=== PATIENT | female | born 1960 | race Caucasian/White ===

== ENCOUNTER → 2016-08-29 | Outpatient (CLI) | payer BC ==
[~2016-08-29] MED LIST: ALBUAER2 INH; AMT/50 PO; BCTO EXT; BMX1 PO; DOUNEB INH; EFF/375 PO; MOME200A INH; NXM/40 PO; POTA-335 PO; PRAM0.129 PO; TRAM-10 PO; VLT500 PO
--- NOTE | 2016-08-29 13:34 | DIAGNOSTIC IMAGING REPORT ---
RIGHT WRIST MIN 3 VIEWS ROUTINE CLINICAL HISTORY: WRIST Right trauma. Pain. COMPARISON: None. DISCUSSION: Mild degenerative change throughout the carpal and radiocarpal regions. Several subchondral cysts on a degenerative basis. No acute bony abnormality. There is no evidence for soft tissue swelling. IMPRESSION: Mild degenerative change. No acute bony abnormality. Electronically signed by: Valeriano Gunter M.D. 08/29/2016 1:33 PM Dictated Date/Time: 08/29/2016 1:32 PM
--- NOTE | 2016-08-29 13:43 | DIAGNOSTIC IMAGING REPORT ---
RIGHT HAND MIN 3 VIEWS ROUTINE CLINICAL HISTORY: HAND Right trauma. Pain. COMPARISON: None. DISCUSSION: Generalized degenerative change throughout the hand and wrist. No evidence for acute fracture or dislocation. Bony alignment is anatomic. There is no evidence for soft tissue swelling. IMPRESSION: Generalized degenerative change. No acute bony abnormality. Electronically signed by: Valeriano Gunter M.D. 08/29/2016 1:42 PM Dictated Date/Time: 08/29/2016 1:41 PM
--- NOTE | 2016-08-29 14:15 | DIAGNOSTIC IMAGING REPORT ---
RIGHT FOREARM 2 VIEWS ROUTINE CLINICAL HISTORY: FALL Right trauma. Pain. COMPARISON: None. DISCUSSION: The bones and joint spaces appear intact. There is no evidence of fracture, dislocation or bony disease. There is no evidence for soft tissue swelling. IMPRESSION: Negative study. Electronically signed by: Valeriano Gunter M.D. 08/29/2016 2:14 PM Dictated Date/Time: 08/29/2016 1:52 PM
== END | disposition home or self-care (01) ==
LOC: C.RAD 12:52
PROVIDERS: ATTEND Nurse Practitioner
DX: M79.631 Pain in right forearm (principal); M19.041 Primary osteoarthritis, right hand

== ENCOUNTER → 2017-04-26 | Outpatient (CLI) | payer BC | END | disposition home or self-care (01) | LOC: C.PAPS 13:52 | PROVIDERS: ATTEND Physician Assistant | DX: Z01.419 Encounter for gynecological examination (general) (routine) without abnormal findings (principal) ==

== ENCOUNTER → 2017-06-06 | Outpatient (CLI) | payer BC ==
[2017-06-06 12:59] LABS: ESTIMATED AVERAGE GLUCOSE 114 mg/dl; HA1C FLAG Normal (Normal)
== END | disposition home or self-care (01) ==
LOC: C.LABMFLN 08:37
PROVIDERS: ATTEND Family Medicine
DX: E11.9 Type 2 diabetes mellitus without complications (principal)

== ENCOUNTER 2019-02-15 09:00 | Observation (INO) ==
--- OUTSIDE RECORDS SUMMARY | 2019-02-15 09:04 | External Medical Summary | Continuity of Care Document ---
:1960 Author Name Sonia Davila, Provider Address Unavailable Unavailable , Care Team Providers Name Role Phone Crystal Davila, [email or web address] Unavailable Unavailable Unavailable Unavailable Unavailable Assessments Assessed Problems:Abnormal ultrasound Problems Abnormal ultrasound (793.99) (R93.89) Venous insufficiency (459.81) (I87.2) BMI 40.0-44.9, adult (V85.41) (Z68.41) Migraine headache (346.90) (G43.909) COPD (chronic obstructive pulmonary disease) (496) (J44.9) COPD exacerbation (491.21) (J44.1) Cough (786.2) (R05) Hypertension (401.9) (I10) GERD (gastroesophageal reflux disease) (530.81) (K21.9) Diabetes mellitus (250.00) (E11.9) Asthma exacerbation (493.92) (J45.901) Degenerative disc disease (722.6) Vitamin D deficiency (268.9) (E55.9) Vitamin B12 deficiency (266.2) (E53.8) Hyperlipidemia (272.4) (E78.5) Anxiety (300.00) (F41.9) Hypoglycemia (251.2) (E16.2) Psoriasis (696.1) (L40.9) Hypokalemia (276.8) (E87.6) Depression (311) (F32.9) Rotator cuff syndrome (726.10) (M75.100) Osteoarthritis (715.90) (M19.90) Impaired glucose tolerance (790.22) (R73.02) Hernia, ventral (553.20) (K43.9) Allergies and Adverse Reactions Ibuprofen CAPS (Allergy) Bandaid (Allergy) Medications PriLOSEC OTC 20 MG Oral Tablet Delayed Release; TAKE 1 TABLE T DAILY. Start: 26-Apr-2017 Refills: 0 Amitriptyline HCl - 50 MG Oral Tablet; TAKE 1 TABLET DAILY. Refills: 0 Multi-Vitamin TABS; TAKE 1 TABLET DAILY. Refills: 0 Pramipexole Dihydrochloride 0.5 MG Oral Tablet; TAKE 1 TABLE T AT BEDTIME. Refills: 0 traMADol HCl TABS; TAKE 100MG EVERY 4 HOURS NEEDED FOR PA IN Refills: 0 Venlafaxine HCl - 37.5 MG Oral Tablet; TAKE 1 TABLET TWICE D AILY. Refills: 0 Procedures History of gallbladder surgery Status: C ompleted History of Diamond-en-Y gastric bypass Stat us: Completed History of splenectomy Status: Completed History of ovarian cystectomy Status: Co mpleted History of rotator cuff repair Status: C ompleted History of carpal tunnel surgery Status: Completed Immunizations Immunizations not documented Social History - Smoking Status Current every day smoker Plan of Treatment Planned Observations Planned Goals not documented Results No Known Results Results not documented Encounters Appointment; Joey Rojas M.D. 28-Nov-2017 13:10 Encounter Diagnosis: Problem not documented Appointment; [facility], Ultrasound 28-Nov-2017 13:00 Encounter Diagnosis: Problem not documented Appointment; [facility], Ultrasound 01-May-2017 14:00 Encounter Diagnosis: Problem not documented Appointment; Taj Harvey PA-C 26-Apr-2017 10:30 Encounter Diagnosis: Problem not documented Appointment; Joey Rojas M.D. 31-Dec-2017 13:50 Encounter Diagnosis: Problem not documented
[2019-02-15] MEDS ORDERED: SODIUM CHLORIDE 0.9% 1000ML 1,000 ML IV ONE (09:20)
[2019-02-15 09:28] LABS: Basophils # (auto) 0.07 K/uL (0-0.2); Eosinophils # (auto) 0.26 K/uL (0-0.5); Eosinophils % (auto) 3.6 %; Hematocrit (blood only) 37.7 % (37-47); Hemoglobin 12.3 g/dL (12.0-16.0); Immature Granulocytes # (auto) 0.01 K/uL (0.00-0.02); Immature Granulocytes % (auto) 0.1 %; Lymphocytes # (auto) 2.74 K/uL (1.2-3.4); Lymphocytes % (auto) 37.8 %; Mean Corpuscular Hgb Conc 32.6 g/dL (32-36); Mean Corpuscular Volume 89.3 fL (80-100); Mean Platelet Volume 10.4 fL (7.4-10.4); Monocytes # (auto) 0.87 K/uL (0.11-0.59); Neutrophils % (auto) 45.5 %; Platelet Count 278 K/uL (130-400); RDW Coefficient of Variation 15.4 % (11.5-14.5); RDW Standard Deviation 50.2 fL (36.4-46.3); Red Blood Count 4.22 M/uL (4.2-5.4); White Blood Count 7.25 K/uL (4.8-10.8)
[2019-02-15 09:38] LABS: Partial Thromboplastin Time 26.2 Seconds (21.0-31.0)
[2019-02-15] MEDS ORDERED: OPTIRAY 320 125ml IV PRN (09:38)
--- NOTE | 2019-02-15 09:42 | CT Scan Report ---
CT head/brain wo con CT DOSE: 1094.25 mGy.cm HISTORY: Mental status change right facial droop TECHNIQUE: Multiaxial CT images of the head were performed without the use of intravenous contrast. A dose lowering technique was utilized adhering to the principles of ALARA. Comparison: None. Findings: The paranasal sinuses and mastoid air cells are clear. The calvarium and skull base are int act. The ventricles and sulci are within normal limits. There is no mass, hematoma, midline shift, or acute infarct. Impression: No acute intracranial abnormality. The above report was generated using voice recognition software. It may contain grammatical, syntax or spelling errors. Electronically signed by: Valeriano Gunter M.D. 02/15/2019 9:40 AM
[2019-02-15 09:44] LABS: Alanine Aminotransferase 23 U/L (12-78); Albumin Level 3.1 gm/dl (3.4-5.0); Aspartate Aminotransferase 24 U/L (15-37); BUN Creatinine Ratio 15.5 (10-20); Bilirubin Direct 0.1 mg/dl (0-0.2); Blood Urea Nitrogen 15 mg/dl (7-18); Calcium 8.6 mg/dl (8.5-10.1); Carbon Dioxide 28 mmol/L (21-32); Chloride 109 mmol/L (98-107); Creatinine Clr Calc Pharmacy 76.2 ml/min; Est GFR (Non-African American) 66.4; Glucose 79 mg/dl (70-99); Magnesium 2.1 mg/dl (1.8-2.4); Potassium 4.2 mmol/L (3.5-5.1); Sodium 142 mmol/L (136-145)
--- NOTE | 2019-02-15 09:44 | CT Scan Report ---
CT angio head w con HISTORY: Mental status change right facial droop TECHNIQUE: Multiaxial CT angiography of the head was performed IV contrast: None. Maximum intensit y projection images were also obtained. A dose lowering technique was utilized adhering to the [facility]. COMPARISON: None. FINDINGS: There is no mass, hematoma, midline shift, or acute infarct. Visualized intracranial compensation intern al carotid arteries, distal vertebral arteries, and basilar artery are widely patent. There is no sig nificant stenosis, occlusion, or aneurysm seen within the bilateral ACAs, MCAs, or hydrogenation still operator. IMPRESSION: No significant stenosis, occlusion, or aneurysm within the [place]. The above report was generated using voice recognition software. It may contain grammatical, syntax or spelling errors. Electronically signed by: Valeriano Gunter M.D. 02/15/2019 9:42 AM
--- NOTE | 2019-02-15 09:48 | CT Scan Report ---
CT angio neck with con HISTORY: Mental status change right facial droop TECHNIQUE: Multiaxial CT angiography of the neck was performed IV contrast: 100 cc All measurements were calculated based on NASCET criteria. Maximum intensity projection images were also obtained. A dose lowering technique was utilized adhering to the principles of ALARA. COMPARISON STUDY: None. FINDINGS: The aortic arch and proximal great vessels are widely patent. There is no significant sten osis, occlusion, or dissection identified within the bilateral common carotid, internal carotid, or v ertebral arteries. Minimal plaque formation bilaterally IMPRESSION: No significant stenosis, occlusion, or dissection identified within the carotid or vertebral arteries . Minimal plaque formation The above report was generated using voice recognition software. It may contain grammatical, syntax or spelling errors. Electronically signed by: Valeriano Gunter M.D. 02/15/2019 9:47 AM
[2019-02-15 09:49] LABS: Albumin Globulin Ratio 0.9 (0.9-2); Alkaline Phosphatase 118 U/L (45-117); Bilirubin,Total 0.6 mg/dl (0.2-1); Globulin 3.6 gm/dl (2.5-4.0); Total Protein 6.7 gm/dl (6.4-8.2); Troponin I < 0.015 ng/ml (0-0.045)
--- NOTE | 2019-02-15 09:55 | XRay Report ---
XR chest 1V portable CLINICAL HISTORY: stroke sx mental status change COMPARISON STUDY: 12/25/2017 FINDINGS: Mild stable cardiomegaly. Slight chronic interstitial prominence. No focal infiltrate. No e vidence for pneumothorax. IMPRESSION: Chronic change. No acute process. The above report was generated using voice recognition software. It may contain grammatical, syntax or spelling errors. Electronically signed by: Valeriano Gunter M.D. 02/15/2019 9:54 AM
[2019-02-15 10:28] LABS: Lyme Ab IgG w/WB Rflx Negative (Negative); Lyme Ab IgM w/WB Rflx Negative (Negative)
[2019-02-15] MEDS ORDERED: VALACYCLOVIR HCL 500 MG TABLET PO ONE (10:32)
[2019-02-15] MEDS ORDERED: predniSONE 20 MG TAB PO STA (10:32)
--- NOTE | 2019-02-15 10:38 | Emergency Department Note ---
Entered by Usha Gan acting as a scribe for History of Present Illness General Chief complaint: Neuro Symptoms/Deficit Stated complaint: RT SIDE FACIAL SWELLING, NUMBNESS Time Seen by Provider: 02/15/19 09:17 Source: patient Mode of arrival: EMS History of Present Illness Onset (ago): hour(s) 1 Location: face Pain Consistency: + other (episode) Quality: + other (weakness) Associated symptoms: + other (swelling in right jaw, numbness around right eye, generalized numbness) The patient is a 58 year old female with a history of a splenectomy, hypergl ycemia, and COPD that is presenting to the Emergency Room with complaints of an episode of weakness that started around 1 hour ago at 0820. The patient reports that she woke and then noticed some swelling in the right side of her face around her jaw. She states that she started experiencing some numbness and weakness shortly after with an associated difficulty speaking. She notes that she is having some numbness around her right eye upon arrival to the ED. She states that she is able to raise both of her eyebrows with difficulty on exam. Home Medications Home Medications Medication Instructions Recorded Confirmed Type citalopram 20 mg PO QAM 02/15/19 02/15/19 History fluticasone propion-salmeterol 1 inh INHALATION Q12H PRN 02/15/19 02/15/19 History [Advair Diskus] gabapentin 900 mg PO TID 02/15/19 02/15/19 History ipratropium-albuterol [Combivent 1 puff INHALATION Q6H PRN 02/15/19 02/15/19 History Respimat] lisinopril 5 mg PO QAM 02/15/19 02/15/19 History metoprolol succinate 25 mg PO 02/15/19 02/15/19 History nortriptyline 10 mg PO 02/15/19 02/15/19 History omeprazole 40 mg PO QAM 02/15/19 02/15/19 History potassium chloride 10 meq PO TID 02/15/19 02/15/19 History pramipexole 0.5 mg PO 02/15/19 02/15/19 History pregabalin [Lyrica] 100 mg PO TID 02/15/19 02/15/19 History ropinirole 0.25 mg PO HS 02/15/19 02/15/19 History tramadol 100 mg PO TID PRN 02/15/19 02/15/19 History Allergies Allergy/AdvReac Type Severity Reaction Status Date / Time ibuprofen Allergy Unknown not to be Unverified 02/15/19 10:47 given Past Med/Surg History Medical History Hyperglycemia (Resolved) Stomach problems (Resolved) COPD (chronic obstructive pulmonary disease) (Chronic) Restless leg syndrome (Chronic) Hypoxia (Resolved) Bronchitis (Resolved) COPD exacerbation (Resolved) Right flank pain (Resolved) Right flank pain (Resolved) GERD (gastroesophageal reflux disease) (Chronic) Surgical History H/O splenectomy (Resolved) Family History Other No significant family history Social History Preferred Language: Brazilian [employer] Pointer Required: No Beliefs That Will Affect Care: None marital status: Current Living Situation: Alone current occupational status: unemployed and disabled Feels Safe at Home: Yes Smoking Status: Current every day smoker Tobacco Type: cigarettes ; Cigarettes Per Day: 3-4/day, working on cessation ; Hx Alcohol Use: Yes Alcohol type: wine Hx Substance Use: No Review of Systems See HPI for pertinent positives & negatives. and A total of 10 systems reviewed and were otherwise negative Physical Exam Vital Signs Vital Signs - 24 hr 02/15/19 09:04 02/15/19 09:35 02/15/19 09:46 Temperature 36.8 C Temperature Source Oral Sepsis Recent Fever Within 48 Hours No Sepsis New/Unexplained Change in Mental Status No Sepsis Action Taken by Nursing No Action Required Pulse Rate 57 L 56 L 52 L Pulse Rate from SpO2 Sensor 51 L Pulse Rhythm Regular Pulse Strength Normal Respiratory Rate 20 20 20 Respiratory Effort / Characteristics Non-Labored Spontaneous Respiratory Depth Normal Respiratory Pattern Regular Blood Pressure 138/77 122/68 146/72 H Blood Pressure Mean 97 86 96 Blood Pressure Position Sitting Pulse Oximetry 98 98 97 Oxygen Delivery Method Room Air 02/15/19 10:03 02/15/19 10:19 02/15/19 10:31 Temperature Temperature Source Sepsis Recent Fever Within 48 Hours Sepsis New/Unexplained Change in Mental Status Sepsis Action Taken by Nursing Pulse Rate 50 L 51 L 52 L Pulse Rate from SpO2 Sensor 50 L 51 L 52 L Pulse Rhythm Pulse Strength Respiratory Rate Respiratory Effort / Characteristics Respiratory Depth Respiratory Pattern Blood Pressure 157/86 H 154/78 H 156/88 H Blood Pressure Mean 109 103 110 Blood Pressure Position Pulse Oximetry 99 100 96 Oxygen Delivery Method 02/15/19 10:46 02/15/19 10:50 Temperature Temperature Source Sepsis Recent Fever Within 48 Hours Sepsis New/Unexplained Change in Mental Status Sepsis Action Taken by Nursing Pulse Rate 55 L 53 L Pulse Rate from SpO2 Sensor Pulse Rhythm Pulse Strength Respiratory Rate 16 15 Respiratory Effort / Characteristics Respiratory Depth Respiratory Pattern Blood Pressure 150/87 H 165/93 H Blood Pressure Mean 108 117 Blood Pressure Position Pulse Oximetry 97 98 Oxygen Delivery Method GENERAL: Awake, alert, well-appearing, in no distress HENT: Normocephalic, atraumatic. Oropharynx with dry mucous membranes and otherwise unremarkable. EYES: Normal conjunctiva. Sclera non-icteric. EOMI. No nystamgus. PEARRL. NECK: Supple. No nuchal rigidity. FROM. No JVD. RESPIRATORY: Clear to auscultation bilaterally. CARDIAC: Regular rate, normal rhythm. Extremities warm and well perfused. Pulses equal. ABDOMEN: Soft, non-distended. No tenderness to palpation. No rebound or gua rding. No masses. RECTAL: Deferred. MUSCULOSKELETAL: Chest examination reveals no tenderness. The back is symmetrical on inspection without obvious abnormality. There is no CVA tenderness to palpation. No joint edema. LOWER EXTREMITIES: Calves are equal size bilaterally and non-tender. No edema. No discoloration. NEURO: Mild swelling of right lower face with blunting of nasolabial fold but able to have symmetric smile with effort. Sparing of the forehead. No significant dysarthria. No objective loss of sensation. Visual crisostomo grossly intact. Intact finger to nose. 5/5 strength and SILT x4 extremities. SKIN: No rash or jaundice noted. Course 0914:The patient was evaluated in room A01. A complete history and physical examination was performed. A stroke alert was called at this time due to the patient's neurological symptoms. 0933: I discussed the patients case with Dr. Bee, [facility], who agrees that what the symptoms I described are indicative of [place] Palsy. However, she will evaluate the patient on the telestroke. 1020: After evaluation of the patient, Dr. Bee stated that her symptoms most likely indicate [place] Palsy. She recommended steroids and Valtrex. She also recommended a MRI with contrast to fully exclude stroke. 1030: I discussed the patient's case with PRISCILLA Barcenas, who will evaluate the patient for further management and care. 1040: Upon reevaluation, the patient is resting comfortably. I discussed laboratory and radiographic results with the patient. She verbalized agreement of the treatment plan. The patient will be evaluated for further management and care. Consultations Consultation #1: I discussed the patients case with Dr. Bee, [facility], who agrees that what the symptoms I described are indicative of [place] Palsy. However, she will evaluate the patient on the telestroke. Time: 09:33 Consultation #2: After evaluation of the patient, Dr. Bee stated that her symptoms most likely indicate [place] Palsy. She recommended steroids and Valtrex. She also recommended a MRI with contrast to fully exclude stroke. Time: 10:20 Consultation #3: I discussed the patient's case with PRISCILLA Barcenas, who will evaluate the patient for further management and care. Time: 10:30 Administered Medications Gabapentin (Neurontin) 900 mg PO TID [facility] Stop: 03/17/19 13:59 Last Admin: 02/15/19 13:37 Dose: 900 mg Documented by: [id number] Ioversol (Optiray 320 125ml) 94 ml IV ONCE PRN PRN Reason: Interaction Checking Stop: 02/19/19 09:37 Last Admin: 02/15/19 09:39 Dose: 1 ml Documented by: [id number] Potassium Chloride (Klor-Con M10) 10 meq PO TID LIDA Stop: 03/17/19 13:59 Last Admin: 02/15/19 13:37 Dose: 10 meq Documented by: [id number] Pregabalin (Lyrica) 100 mg PO TID LIDA Stop: 03/17/19 13:59 Last Admin: 02/15/19 13:37 Dose: 100 mg Documented by: [id number] Discontinued Medications Sodium Chloride (Nss 1000ml) 1,000 mls @ 999 mls/hr IV .Q1H1M ONE Stop: 02/15/19 10:20 Last Infusion: 02/15/19 10:43 Dose: 0 mls/hr Documented by: [id number] Admin: 02/15/19 09:42 Dose: 999 mls/hr Documented by: [id number] Prednisone (Prednisone) 60 mg PO NOW STA Stop: 02/15/19 10:33 Last Admin: 02/15/19 10:39 Dose: 60 mg Documented by: [id number] Valacyclovir HCl (Valtrex) 1,000 mg PO NOW ONE Stop: 02/15/19 10:33 Last Admin: 02/15/19 10:39 Dose: 1,000 mg Documented by: [id number] Medical Decision Making Differential Diagnosis Differential diagnosis: Etiologies such as metabolic, infection, hypo/hyperglycemia, electrolyte abnormalities, cardiac sources, intracerebral event, toxicologic, neurologic, as well as others were entertained. Medical Records Attestation: I reviewed the patient's medical records. Home Medications Current Medication List: was personally reviewed by me Laboratory Data Attestation: I reviewed the patient's lab results. Result diagrams: 02/15/19 09:16 02/15/19 09:16 Lab Results 02/15/19 02/15/19 02/15/19 Range/Units 09:16 09:16 09:16 WBC 7.25 (4.8-10.8) K/uL RBC 4.22 (4.2-5.4) M/uL Hgb 12.3 (12.0-16.0) g/dL Hct 37.7 (37-47) % MCV 89.3 (80-100) fL MCH 29.1 (25-34) pg MCHC 32.6 (32-36) g/dL RDW Std Deviation 50.2 H (36.4-46.3) fL RDW Coeff of Jaz 15.4 H (11.5-14.5) % Plt Count 278 (130-400) K/uL MPV 10.4 (7.4-10.4) fL Immature Gran % (Auto) 0.1 % Neut % (Auto) 45.5 % Lymph % (Auto) 37.8 % [place] % (Auto) 12.0 % Eos % (Auto) 3.6 % Baso % (Auto) 1.0 % Immature Gran # (Auto) 0.01 (0.00-0.02) K/uL Neut # (Auto) 3.30 (1.4-6.5) K/uL Lymph # (Auto) 2.74 (1.2-3.4) K/uL [place] # (Auto) 0.87 H (0.11-0.59) K/uL Eos # (Auto) 0.26 (0-0.5) K/uL Baso # (Auto) 0.07 (0-0.2) K/uL PT 10.0 (9.0-12.0) Seconds INR 1.0 (0.9-1.1) APTT 26.2 (21.0-31.0) Seconds PTT Ratio 1.0 Sodium 142 (136-145) mmol/L Potassium 4.2 (3.5-5.1) mmol/L Chloride 109 H (98-107) mmol/L Carbon Dioxide 28 (21-32) mmol/L Anion Gap 5.0 (3-11) BUN 15 (7-18) mg/dl Creatinine 0.94 (0.6-1.2) mg/dl Est Cr Clr Drug Dosing 76.2 ml/min Est GFR ( Amer) 77.0 Est GFR (Non-Af Amer) 66.4 BUN/Creatinine Ratio 15.5 (10-20) Glucose 79 (70-99) mg/dl POC Glucose (70-99) Calcium 8.6 (8.5-10.1) mg/dl Magnesium 2.1 (1.8-2.4) mg/dl Total Bilirubin 0.6 (0.2-1) mg/dl Direct Bilirubin 0.1 (0-0.2) mg/dl AST 24 (15-37) U/L ALT 23 (12-78) U/L Alkaline Phosphatase 118 H (45-117) U/L Troponin I < 0.015 (0-0.045) ng/ml Total Protein 6.7 (6.4-8.2) gm/dl Albumin 3.1 L (3.4-5.0) gm/dl Globulin 3.6 (2.5-4.0) gm/dl Albumin/Globulin Ratio 0.9 (0.9-2) Lyme Disease IgG Ab (Negative) Lyme Disease IgM Ab (Negative) Blood Type Antibody Screen 02/15/19 02/15/19 02/15/19 Range/Units 09:16 09:16 09:39 WBC (4.8-10.8) K/uL RBC (4.2-5.4) M/uL Hgb (12.0-16.0) g/dL Hct (37-47) % MCV (80-100) fL MCH (25-34) pg MCHC (32-36) g/dL RDW Std Deviation (36.4-46.3) fL RDW Coeff of Jaz (11.5-14.5) % Plt Count (130-400) K/uL MPV (7.4-10.4) fL Immature Gran % (Auto) % Neut % (Auto) % Lymph % (Auto) % [place] % (Auto) % Eos % (Auto) % Baso % (Auto) % Immature Gran # (Auto) (0.00-0.02) K/uL Neut # (Auto) (1.4-6.5) K/uL Lymph # (Auto) (1.2-3.4) K/uL [place] # (Auto) (0.11-0.59) K/uL Eos # (Auto) (0-0.5) K/uL Baso # (Auto) (0-0.2) K/uL PT (9.0-12.0) Seconds INR (0.9-1.1) APTT (21.0-31.0) Seconds PTT Ratio Sodium (136-145) mmol/L Potassium (3.5-5.1) mmol/L Chloride (98-107) mmol/L Carbon Dioxide (21-32) mmol/L Anion Gap (3-11) BUN (7-18) mg/dl Creatinine (0.6-1.2) mg/dl Est Cr Clr Drug Dosing ml/min Est GFR ( Amer) Est GFR (Non-Af Amer) BUN/Creatinine Ratio (10-20) Glucose (70-99) mg/dl POC Glucose (70-99) Calcium (8.5-10.1) mg/dl Magnesium (1.8-2.4) mg/dl Total Bilirubin (0.2-1) mg/dl Direct Bilirubin Cancelled (0-0.2) mg/dl AST (15-37) U/L ALT (12-78) U/L Alkaline Phosphatase (45-117) U/L Troponin I (0-0.045) ng/ml Total Protein (6.4-8.2) gm/dl Albumin (3.4-5.0) gm/dl Globulin (2.5-4.0) gm/dl Albumin/Globulin Ratio (0.9-2) Lyme Disease IgG Ab Negative (Negative) Lyme Disease IgM Ab Negative (Negative) Blood Type O Positive Antibody Screen NEGATIVE 02/15/19 Range/Units 09:39 WBC (4.8-10.8) K/uL RBC (4.2-5.4) M/uL Hgb (12.0-16.0) g/dL Hct (37-47) % MCV (80-100) fL MCH (25-34) pg MCHC (32-36) g/dL RDW Std Deviation (36.4-46.3) fL RDW Coeff of Jaz (11.5-14.5) % Plt Count (130-400) K/uL MPV (7.4-10.4) fL Immature Gran % (Auto) % Neut % (Auto) % Lymph % (Auto) % [place] % (Auto) % Eos % (Auto) % Baso % (Auto) % Immature Gran # (Auto) (0.00-0.02) K/uL Neut # (Auto) (1.4-6.5) K/uL Lymph # (Auto) (1.2-3.4) K/uL [place] # (Auto) (0.11-0.59) K/uL Eos # (Auto) (0-0.5) K/uL Baso # (Auto) (0-0.2) K/uL PT (9.0-12.0) Seconds INR (0.9-1.1) APTT (21.0-31.0) Seconds PTT Ratio Sodium (136-145) mmol/L Potassium (3.5-5.1) mmol/L Chloride (98-107) mmol/L Carbon Dioxide (21-32) mmol/L Anion Gap (3-11) BUN (7-18) mg/dl Creatinine (0.6-1.2) mg/dl Est Cr Clr Drug Dosing ml/min Est GFR ( Amer) Est GFR (Non-Af Amer) BUN/Creatinine Ratio (10-20) Glucose (70-99) mg/dl POC Glucose 72 (70-99) Calcium (8.5-10.1) mg/dl Magnesium (1.8-2.4) mg/dl Total Bilirubin (0.2-1) mg/dl Direct Bilirubin (0-0.2) mg/dl AST (15-37) U/L ALT (12-78) U/L Alkaline Phosphatase (45-117) U/L Troponin I (0-0.045) ng/ml Total Protein (6.4-8.2) gm/dl Albumin (3.4-5.0) gm/dl Globulin (2.5-4.0) gm/dl Albumin/Globulin Ratio (0.9-2) Lyme Disease IgG Ab (Negative) Lyme Disease IgM Ab (Negative) Blood Type Antibody Screen Imaging Data Radiologist's Impression: Radiology results as stated below per my review and the radiologist's interpretation: CT angio neck with con HISTORY: Mental status change right facial droop TECHNIQUE: Multiaxial CT angiography of the neck was performed IV contrast: 100 cc All measurements were calculated based on NASCET criteria. Maximum intensity projection images were also obtained. A dose lowering technique was utilized adhering to the principles of ALARA. COMPARISON STUDY: None. FINDINGS: The aortic arch and proximal great vessels are widely patent. There is no significant stenosis, occlusion, or dissection identified within the bilateral common carotid, internal carotid, or vertebral arteries. Minimal plaque formation bilaterally IMPRESSION: No significant stenosis, occlusion, or dissection identified within the carotid or vertebral arteries. Minimal plaque formation The above report was generated using voice recognition software. It may contain grammatical, syntax or spelling errors. Electronically signed by: Valeriano Gunter M.D. 02/15/2019 9:[address] head/brain wo con CT DOSE: 1094.25 mGy.cm HISTORY: Mental status change right facial droop TECHNIQUE: Multiaxial CT images of the head were performed without the use of intravenous contrast. A dose lowering technique was utilized adhering to the principles of ALARA. Comparison: None. Findings: The paranasal sinuses and mastoid air cells are clear. The calvarium and skull base are intact. The ventricles and sulci are within normal limits. There is no mass, hematoma, midline shift, or acute infarct. Impression: No acute intracranial abnormality. The above report was generated using voice recognition software. It may contain grammatical, syntax or spelling errors. Electronically signed by: Valeriano Gunter M.D. 02/15/2019 9:[address] angio head w con HISTORY: Mental status change right facial droop TECHNIQUE: Multiaxial CT angiography of the head was performed IV contrast: None. Maximum intensity projection images were also obtained. A dose lowering technique was utilized adhering to the principles of ALARA. COMPARISON: None. FINDINGS: There is no mass, hematoma, midline shift, or acute infarct. Visualized intracranial internal carotid arteries, distal vertebral arteries, and basilar artery are widely patent. There is no significant stenosis, occlusion, or aneurysm seen within the bilateral ACAs, MCAs, or supervisor ab[employer]ir. IMPRESSION: No significant stenosis, occlusion, or aneurysm within the [place]. The above report was generated using voice recognition software. It may contain grammatical, syntax or spelling errors. Electronically signed by: Valeriano Gunter M.D. 02/15/2019 9:42 AM XR chest 1V portable CLINICAL HISTORY: stroke sx mental status change COMPARISON STUDY: 12/25/2017 FINDINGS: Mild stable cardiomegaly. Slight chronic interstitial prominence. No focal infiltrate. No evidence for pneumothorax. IMPRESSION: Chronic change. No acute process. The above report was generated using voice recognition software. It may contain grammatical, syntax or spelling errors. Electronically signed by: Valeriano Gunter M.D. 02/15/2019 9:54 AM ECG Data Attestation: I personally reviewed and interpreted this ECG as follows: Indication: weakness Rate (beats per minute): 53 Rhythm: sinus bradycardia Findings: + LBBB (incomplete) and + left axis deviation; no ST depression, no ST elevation and no acute ischemic change Comparison ECG Date: from (12/25/17) Change: no significant change Blood Pressure Blood Pressure Findings: Normal blood pressure MDM Narrative The patient is a pleasant 58-year-old woman with a past medical history of COPD, restless leg, GERD, history of splenectomy, history of baseline incomplete left bundle branch block who presents emergency department with acute onset right lower facial swelling, numbness and weakness that began at approximately 8:30 AM this morning per hpi. Patient reports she woke up feeling normal but then noticed her symptoms develop initially with the facial swelling. Arrival patient is no acute distress, afebrile stable vital signs. On exam the patient exhibits mild swelling of the right lower face with slight blunting of the nasolabial fold though she is able to have a symmetric smile with effort. She has no severe dysarthria. At most the patient has an NIH score of 2. Patient does have sparing of her forehead however does report some numbness and tingling around her eye. Otherwise she exhibits no focal neuro deficits. Given the patient's swelling preceding her weakness suspicion is greatest for likely evolving Ramirez's palsy. However given no clear forehead involvement cannot exclude stroke completely and therefore stroke alert was activated. CT of the head and CT of the head and neck were negative for acute process. EKG demonstrates the patient's baseline incomplete left bundle branch block without overt acute ischemia. Chest x-ray negative for acute process. WBC, H/H, platelets wnl. Chemistry without acidosis. LFTs and electrolytes unremarkable. UA negative. Patient was evaluated via tele-stroke by Dr. 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 Thus, no indication for TPA. However recommends MRI to further exclude CVA and otherwise treatment for Ramirez's palsy with prednisone and Valtrex and to follow-up Lyme screen. Patient is agreeable with plan. Case was discussed with Dr. Mack, [facility] hospitalist, who will evaluate the patient for admission. Impression & Plan Weakness on right side of face, Right facial swelling Discharge Plan Visit Data *Final* Discharge Date/Time: 02/15/19 11:22 Chief Complaint: Neuro Symptoms/Deficit Stated Complaint: RT SIDE FACIAL SWELLING, NUMBNESS ED Provider: Christian Recio Discharge Problem: Weakness on right side of face, Right facial swelling Patient Disposition: Admitted As Inpatient Discharge Instructions Interventions: ED Discharge Assessment Last Done: 02/15/19 11:22 The scribe's documentation has been prepared under my direction and personally reviewed by me in its entirety. I confirm that the note above accurately re flects all work, treatment, procedures, and medical decision making performed by me.
--- NOTE | 2019-02-15 11:27 | History & Physical Report ---
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 and then taper by 10mg QD for 5 more days and valtrex x7 days There does not appear to be any lid lag issues, however pt was informed that this could develop and to use eye covering if so to avoid corneal abrasion (2) COPD (chronic obstructive pulmonary disease): continue home meds (3) Restless leg syndrome: continue home meds (4) GERD (gastroesophageal reflux disease): continue home meds (5) Depression: continue home meds (6) Heart murmur: Pt states she takes lisinopril for her murmur and no dx of HTN (7) Neuropathy: TID gabapentin dosing, however pt states she usually takes BID due to regularly missing midday dose (8) Tobacco use disorder: Has been using wellbutrin for cessation and down to 3-4 cigarettes/day Declines nicotine patch (9) DVT prophylaxis: Ambulation History of Present Illness Primary Care Provider: Galina Simmons, DO 58 y/o F c/o stroke like sx. Pt states she was sitting down to breakfast around 8:30a today when she noted a sudden onset of R sided facial fullness, numbness, tingling, and difficulty moving her mouth. She thought she was having a stroke and came to the ED. Pt denies any other issues prior to this event today. She had no inability to use UE/LE, no changes in vision or hearing, she was not confused or able to speak. She feels that she can blink/close her eyes without issue. She has no prior hx of similar sx. Pt has been at her baseline health other than an episode of emesis 2 days ago after eating chicken nuggets. She ate without issue yesterday. Pt denies fever, SOB, chest pain, abd pain, n/c/d, LE pain or swelling. She continues to have same R sided facial sx after steroids and valtrex in the ED. Pt was evaluated by [facility] stroke telemed in the ED. 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 [facility] neurology recommended for MRI and overnight observation given this difference in presentation. Allergies Allergy/AdvReac Type Severity Reaction Status Date / Time ibuprofen Allergy Unknown not to be Unverified 02/15/19 10:47 given Home Medications Home Medications Medication Instructions Recorded Confirmed Type citalopram 20 mg PO QAM 02/15/19 02/15/19 History fluticasone propion-salmeterol 1 inh INHALATION Q12H PRN 02/15/19 02/15/19 History [Advair Diskus] gabapentin 900 mg PO TID 02/15/19 02/15/19 History ipratropium-albuterol [Combivent 1 puff INHALATION Q6H PRN 02/15/19 02/15/19 History Respimat] lisinopril 5 mg PO QAM 02/15/19 02/15/19 History metoprolol succinate 25 mg PO HS 02/15/19 02/15/19 History nortriptyline 10 mg PO HS 02/15/19 02/15/19 History omeprazole 40 mg PO QAM 02/15/19 02/15/19 History potassium chloride 10 meq PO TID 02/15/19 02/15/19 History pramipexole 0.5 mg PO HS 02/15/19 02/15/19 History pregabalin [Lyrica] 100 mg PO TID 02/15/19 02/15/19 History ropinirole 0.25 mg PO HS 02/15/19 02/15/19 History tramadol 100 mg PO TID PRN 02/15/19 02/15/19 History Past Med/Surg History Medical History Hyperglycemia (Resolved) Stomach problems (Resolved) COPD (chronic obstructive pulmonary disease) (Chronic) Restless leg syndrome (Chronic) Hypoxia (Resolved) Bronchitis (Resolved) COPD exacerbation (Resolved) Right flank pain (Resolved) Right flank pain (Resolved) GERD (gastroesophageal reflux disease) (Chronic) Surgical History H/O splenectomy (Resolved) Family History Other No significant family history Social History Preferred Language: Slovenian marital status: Current Living Situation: Alone current occupational status: unemployed and disabled Feels Safe at Home: Yes Smoking Status: Current every day smoker Cigarettes Per Day: 3-4/day, working on cessation ; Hx Alcohol Use: No Hx Substance Use: No Review of Systems Review of Systems: Pertinent positives and negatives reviewed in HPI--all others negative Physical Exam Constitutional: WD/WN, vitals as above Eyes: normal visual crisostomo by confrontation and + anicteric sclerae blinking eyes evenly, no lid lag Neck: normal visual inspection and trachea midline Respiratory: normal respiratory effort, lungs clear to auscultation Cardiovascular: Rate/Rhythm: regular rate and regular rhythm Gastrointestinal (Abdomen): Inspection/Auscultation: abdomen not distended Percussion/Palpation: abdomen soft; abdomen nontender Musculoskeletal: Head/Neck/Chest: normocephalic and head atraumatic negative for edema, peripheral pulses intact Skin: no rashes, warm and dry Neurologic: CN's II-XI intact bilaterally (very slight R facial droop) and awake; not confused Speech / Cognition: normal speech Able to perform forced air breathing via pursed lips, however seal is not completely intact = supervisor edging strength 5/5 b/l LE 5/5 strength against resistance in all planes Psychiatric: A+Ox3, euthymic affect Results & Data Vital Signs (Past 12 Hours) Vital Signs Temp Pulse Resp BP Pulse Ox 02/15/19 10:50 53 L 15 165/93 H 98 02/15/19 10:46 55 L 16 150/87 H 97 02/15/19 10:31 52 L 156/88 H 96 02/15/19 10:19 51 L 154/78 H 100 02/15/19 10:03 50 L 157/86 H 99 02/15/19 09:46 52 L 20 146/72 H 97 02/15/19 09:35 56 L 20 122/68 98 02/15/19 09:04 36.8 C 57 L 20 138/77 98 Diagnostic Findings CXR: neg for acute CT head: neg for acute CTA head/neck: neg for acute ECG Rhythm: sinus bradycardia Code Status & VTE Plan Code Status Full code, although pt states no prolonged mechanical life support, feeding tubes, etc VTE Prophylaxis Plan VTE Prophylaxis will be ordered: Yes PG Care Time/CCT Total # of Minutes Spent Total Time Spent with Patient: Total time spent is greater than 50% in coordination of care (as documented) at patient's floor/unit and/or counseling patient:
[2019-02-15] MEDS ORDERED: FLUTICASONE/SALMETEROL 250/50 (ADVAIR) 14 PUFF/1 INHALER INH PRN (11:57)
[2019-02-15] MEDS ORDERED: MAGNESIUM HYDROXIDE SUSP 30 ML UDC PO PRN (11:57)
[2019-02-15] MEDS ORDERED: IPRATROPIUM BROMIDE/ALBUTEROL respimat INH INH PRN (11:57)
[2019-02-15] MEDS ORDERED: ACETAMINOPHEN 325 MG TAB PO PRN (11:57)
[2019-02-15] MEDS ORDERED: PHARMACIST DISCHARGE MED REC CONSULT PRN (11:57)
[2019-02-15] MEDS ORDERED: TRAMADOL HCL 50 MG TABLET PO PRN (11:57)
[2019-02-15] MEDS ORDERED: ONDANSETRON INJ 2 MG/ML 2 ML VIAL IV PRN (11:57)
[2019-02-15 13:15] LABS: Appearance Urine Clear (Clear); Bilirubin Urine Negative (Negative); Blood Urine Negative (Negative); Color Urine Yellow; Glucose Urine UA Negative (Negative); Ketones Urine Negative (Negative); Leukocyte Esterase Urine Negative (Negative); Nitrite Urine Negative (Negative); Protein Urine Negative (Negative); Specific Gravity Urine 1.023 (1.000-1.030); Urobilinogen Urine Negative (Negative); pH Urine 5.5 (4.5-7.5)
[2019-02-15] MEDS: PREGABALIN 100 MG CAP PO SCH ×2 (13:37→20:16)
[2019-02-15] MEDS: POTASSIUM CHLORIDE 10 MEQ TABCR PO SCH ×2 (13:37→20:14)
[2019-02-15] MEDS: GABAPENTIN 300 MG CAP PO SCH ×2 (13:37→20:13)
--- NOTE | 2019-02-15 14:47 | Magnetic Resonance Report ---
MR brain wo con HISTORY: Mental status change stroke like sx TECHNIQUE: Multiplanar multisequence MRI of the brain was performed without the use of contrast. COMPARISON STUDY: None. FINDINGS: There are no areas of restricted diffusion to suggest acute infarction. The midline structu res are intact. The paranasal sinuses are clear. The mastoid air cells are clear. The ventricles and sulci are within normal limits for age. There is no mass, hematoma, midline shift. The major vascular flow-voids at the skull base are well maintained. Foci of increased signal are noted within the aixa ventricular and deep white matter regions. Several foci are also noted within the region of the optic radiations. Differential considerations include a demyelinating disorder versus chronic small vessel change. IMPRESSION: 1. No evidence for an acute ischemic insult. 2. Multiple foci of increased signal within the periventricular and deep white matter regions. 3. Differential considerations include chronic small vessel change versus a potential demyelinating d isorder. The above report was generated using voice recognition software. It may contain grammatical, syntax or spelling errors. Electronically signed by: Valeriano Gunter M.D. 02/15/2019 2:44 PM
[2019-02-15] MEDS ORDERED: PROMETHAZINE HCL 12.5 MG in SODIUM CHLORIDE 0.9% 50 ML IV ONE (20:00)
[2019-02-15] MEDS: VALACYCLOVIR HCL 500 MG TABLET PO SCH (20:13)
[2019-02-16 06:25] LABS: Estimated Average Glucose 120 mg/dl; Hemoglobin A1C 5.8 % (4.5-5.6)
[2019-02-16] MEDS: PREGABALIN 100 MG CAP PO SCH (08:12)
[2019-02-16] MEDS: POTASSIUM CHLORIDE 10 MEQ TABCR PO SCH (08:12)
[2019-02-16] MEDS: VALACYCLOVIR HCL 500 MG TABLET PO SCH (08:14)
[2019-02-16] MEDS: GABAPENTIN 300 MG CAP PO SCH (08:14)
[2019-02-16] MEDS ORDERED: BuPROPion XL 150 MG TABCR PO SCH (09:00)
[2019-02-16] MEDS ORDERED: METOPROLOL SUCC 25MG EXT REL TAB PO SCH (09:00)
[2019-02-16] MEDS ORDERED: PANTOprazole 40 MG TAB PO SCH (09:00)
[2019-02-16] MEDS ORDERED: predniSONE 20 MG TAB PO SCH (09:00)
[2019-02-16] MEDS ORDERED: CITALOPRAM 20 MG TAB PO SCH (09:00)
[2019-02-16] MEDS ORDERED: NORTRIPTYLINE HCL 10 MG CAP PO SCH (09:00)
[2019-02-16] MEDS ORDERED: LISINOPRIL 5 MG TAB PO SCH (09:00)
[2019-02-16] MEDS ORDERED: ROPINIROLE HCL 0.25 MG TABLET PO SCH (09:00)
[2019-02-16] MEDS ORDERED: PRAMIPEXOLE DIHYDROCHLO 0.5 MG TAB PO SCH (09:00)
[2019-02-16 09:10] LABS: Chol HDL Ratio 4; Cholesterol 179 mg/dl (0-200); HDL Cholesterol 48 mg/dl; LDL Cholesterol Calculated 116 mg/dl; Triglycerides 73 mg/dl (0-150); VLDL Cholesterol 15 mg/dl
[2019-02-16] MEDS ORDERED: STROKE PATIENT DISCHARGE STA (09:31)
--- NOTE | 2019-02-16 09:41 | Discharge Summary ---
Date of Service February 16, 2019 Admission HPI Per Admitting Provider 58 y/o F c/o stroke like sx. Pt states she was sitting down to breakfast around 8:30a today when she noted a sudden onset of R sided facial fullness, numbness, tingling, and difficulty moving her mouth. She thought she was having a stroke and came to the ED. Pt denies any other issues prior to this event today. She had no inability to use UE/LE, no changes in vision or hearing, she was not confused or able to speak. She feels that she can blink/close her eyes without issue. She has no prior hx of similar sx. Pt has been at her baseline health other than an episode of emesis 2 days ago after eating chicken nuggets. She ate without issue yesterday. Pt denies fever, SOB, chest pain, abd pain, n/c/d, LE pain or swelling. She continues to have same R sided facial sx after steroids and valtrex in the ED. Pt was evaluated by [facility] stroke telemed in the ED. 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 [facility] neurology recommended for MRI and overnight observation given this difference in presentation. Principal Diagnosis Pt is doing quite well today. She has no further numbness or tingling. She does not feel any further facial droop. She does not feel any issues with her eye lid or blinking. She has had no issues with eating/chewing/swallowing. Pt denies fever, SOB, chest pain, abd pain, n/v/c/d, LE pain or swelling. Pt remembered after admission that she had a similar episode when she was about 19 y/o that resolved quickly as well. Discharge Exam Constitutional WD/WN, vitals as above Eyes normal visual crisostomo by confrontation and + anicteric sclerae Neck normal visual inspection and trachea midline Respiratory normal respiratory effort, lungs clear to auscultation Cardiovascular Rate/Rhythm: regular rate and regular rhythm Gastrointestinal (Abdomen) Inspection/Auscultation: abdomen not distended Percussion/Palpation: abdomen soft; abdomen nontender Musculoskeletal Head/Neck/Chest: normocephalic and head atraumatic Skin no rashes, warm and dry Neurologic CN's II-XI intact bilaterally (very slight R facial droop that is improved from yesterday) and awake; not confused Speech / Cognition: normal speech Psychiatric A+Ox3, euthymic affect Discharge Data Allergies Allergy/AdvReac Type Severity Reaction Status Date / Time ibuprofen Allergy Unknown not to be Unverified 02/15/19 10:47 given Consultations 02/15/19 10:29 ED Decision to Admit Stat Ordered Studies 02/15/19 09:18 CT angio head w con Stat CT angio neck with con Stat CT head/brain wo con Stat 02/15/19 11:57 MR brain wo con Routine Hospital Course (1) Weakness on right side of face: [facility] telemed feels 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, however it was determined that pt should remain for observation overnight for MRI and monitoring as pt does not have typical forehead involvement CT head, CTA head/neck WNL CBC, PRP, trop WNL Lyme neg EKG with sinus roger MRI neg 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 x5 days and then taper by 10mg QD for 5 more days and valtrex x7 days There does not appear to be any lid lag issues, however pt was informed that this could develop and to use eye covering if so to avoid corneal abrasion Pt states she had a similar episode around 19 y/o that resolved quickly as well Discussed possibility of adding aspirin 81mg however pt states h/o gastric bypass and aspirin use is not permitted (2) COPD (chronic obstructive pulmonary disease): continue home meds (3) Restless leg syndrome: continue home meds (4) GERD (gastroesophageal reflux disease): continue home meds (5) Depression: continue home meds (6) Heart murmur: Pt states she takes lisinopril for her murmur and no dx of HTN (7) Neuropathy: TID gabapentin dosing, however pt states she usually takes BID due to regularly missing midday dose (8) Tobacco use disorder: Has been using wellbutrin for cessation and down to 3-4 cigarettes/day Declines nicotine patch (9) DVT prophylaxis: Ambulation Total Time Total Time Spent Total Time Spent (In Minutes): > 30 Discharge Plan Discharge Items Patient Disposition: Home - Self-Care Reason For Visit: STROKE LIKE SX Discharge Diagnosis: Ramirez's Palsy Discharge Goals: Decrease discomfort and Improve function Activity: Resume your previous activity Non-emergency contact: Primary Care Provider Call non-emergency contact if: you have any medication questions and your symptoms worsen Follow-up/Referrals: Galina Simmons, [Primary Care Provider] - 02/24/19 7:50 am (Please, follow up at Dr. Galina Simmons's office with Aury DUONG on SaturdayFebruary 24 at 7:50 am. *If you need to change this appointment, call the office at [phone].) Diet: Regular Addtl Provider Instructions: You did not appear to have any lid lag issues, however this could develop at a later time. If it does, you should use an eye patch until it resolves, especially at night to avoid corneal abrasion. Dr. Simmons in 1-2 weeks Prescriptions: New valacyclovir 500 mg Tablet 500 mg PO BID Qty: 5 RF: 0 prednisone 10 mg tablet 10 mg PO DAILY Qty: 39 RF: 0 Continued potassium chloride 10 mEq capsule, extended release 10 meq PO TID RF: 0 omeprazole 40 mg capsule,delayed release(DR/EC) 40 mg PO QAM RF: 0 pramipexole 0.5 mg tablet 0.5 mg PO HS RF: 0 citalopram 20 mg tablet 20 mg PO QAM RF: 0 ropinirole 0.25 mg tablet 0.25 mg PO HS RF: 0 nortriptyline 10 mg capsule 10 mg PO HS RF: 0 lisinopril 5 mg tablet 5 mg PO QAM RF: 0 metoprolol succinate 25 mg tablet extended release 24 hr 25 mg PO HS RF: 0 pregabalin [Lyrica] 100 mg capsule 100 mg PO TID RF: 0 fluticasone propion-salmeterol [Advair Diskus] 250-50 mcg/dose Blister With Device 1 inh INHALATION Q12H PRN (Reason: Shortness Of Breath Or Wheezing) RF: 0 tramadol 50 mg tablet 100 mg PO TID PRN (Reason: Pain) RF: 0 gabapentin 300 mg Capsule 900 mg PO TID RF: 0 Combivent Respimat 20-100 mcg/actuation Mist 1 puff INHALATION Q6H PRN (Reason: Shortness Of Breath Or Wheezing) RF: 0 Stand-Alone Forms: My [facility]/Other Patient Handouts: Valacyclovir Hydrochloride Oral tablet, Prednisone Oral tablet, Palsy [place] Discharge Orders: Discharge Order (Routine); Ordered 02/16/19 Ordered By: Brittny Mack Admission Data Admit Date/Time: 02/15/19 10:55 Attending Provider: Brittny Mack Admit Provider: Brittny Mack Primary Care Provider: Galina Simmons Other Providers: Brittny Mack Service: Telemetry Other Interventions: Discharge Summary Assessment (RN) Last Done: 02/16/19 10:27 Pending Studies at Discharge: No DC Date/Time DO NOT enter until pt leaves facility: 02/16/19 10:53
== END 2019-02-16 10:53 | disposition home or self-care (01) ==
LOC: ED 09:00 → 2E 09:00

== ENCOUNTER 2022-12-07 09:02 | Observation (INO) ==
[2022-12-07] MEDS ORDERED: ALBUT/IPRATROP 3MG/0.5MG NEB 3 ML VIAL NEB ONE (09:45)
[2022-12-07] MEDS ORDERED: MAGNESIUM SULFATE / D5W 1 GM/100 ML BAG IV STA ×2 (09:45→12:07)
[2022-12-07] MEDS ORDERED: LORazepam 2 MG/1 ML VIAL IV STA (09:46)
[2022-12-07] MEDS ORDERED: SODIUM CHLORIDE 0.9% 1000ML 1,000 ML IV SCH (10:00)
[2022-12-07 10:08] LABS: Basophils # (auto) 0.04 K/uL (0-0.2); Basophils % (auto) 0.3 %; Hematocrit (blood only) 37.5 % (37.0-47.0); Immature Granulocytes # (auto) 0.04 K/uL (0.01-0.20); Immature Granulocytes % (auto) 0.3 %; Lymphocytes # (auto) 2.71 K/uL (1.2-3.4); Lymphocytes % (auto) 23.1 %; Mean Corpuscular Hemoglobin 26.4 pg (25.0-34.0); Mean Corpuscular Volume 82.4 fL (80.0-100.0); Mean Platelet Volume 11.2 fL (9.4-12.4); Monocytes # (auto) 0.88 K/uL (0.11-0.59); Monocytes % (auto) 7.5 %; Neutrophils # (auto) 8.06 K/uL (1.40-6.50); Neutrophils % (auto) 68.8 %; Platelet Count 449 K/uL (130-400); RDW Coefficient of Variation 15.3 % (11.5-14.5); RDW Standard Deviation 46.4 fL (36.4-46.3); Red Blood Count 4.55 M/uL (4.20-5.40); White Blood Count 11.73 K/ul (4.8-10.8)
[2022-12-07 10:14] LABS: Albumin Globulin Ratio 1.3 (0.9-2); Albumin Level 3.9 gm/dl (3.4-5.0); BUN Creatinine Ratio 21.2 (10-20); Bilirubin,Total 0.8 mg/dl (0.2-1.0); Calcium 9.8 mg/dl (8.6-10.3); Creatinine Clr Calc Pharmacy 80.8 ml/min; Est GFR (African American) 84.5 ml/min; Est GFR (Non-African American) 72.9 ml/min; Magnesium 1.6 mg/dl (1.7-2.4); Potassium 3.7 mmol/L (3.5-5.1); Total Protein 6.9 gm/dl (6.0-8.3)
[2022-12-07 10:20] LABS: Troponin I High Sensitivity 11.2 pg/ml (0-14)
--- NOTE | 2022-12-07 10:41 | Emergency Department Note ---
Impression & Plan Acute dyspnea, Acute exacerbation of chronic obstructive pulmonary disease (COPD), Noncompliance, Frequent PVCs ED Provider Note ED Provider Note NAME: IRVIN MACIEL AGE:62 SEX: Female : 1960 ARRIVES VIA: EMS INFORMANT: Patient ED PROVIDER(s): Ivory Easley DO CHIEF COMPLAINT: Shortness of breath HPI: This is a 62-year-old female presents emergency department via EMS complaining of increased shortness of breath. Patient states she has a history of asthma and COPD. Patient states she was seen and evaluated here last night, given a breathing treatment and given prescriptions at time of discharge. She states her breathing has been worsening over the last several days. She states her breathing continued to worsen overnight despite using her albuterol inhaler and this morning she developed accompanying chest tightness. She states breathing is worse with any movement/exertion as well as with attempts to lie flat. She denies any other prior heart history. Patient was recently incarcerated but denies any exposures to other respiratory illness during that time. No hx of TB exposure. She denies recent fevers, chills, change in her cough or sputum. Patient states last night she can hear herself wheezing and used her inhaler multiple times. She states she was given nebulizer treatment by EMS in route. Patient states she has never been hospitalized for her breathing but does have a prior history of pneumonia. PAST MEDICAL HISTORY:See Below PAST SURGICAL HISTORY:See Below FAMILY HISTORY:See Below SOCIAL HISTORY:See Below HOME MEDICATIONS:See Below ALLERGIES:See Below VITALS:See Below PHYSICAL EXAMINATION: GENERAL: alert, well appearing, well nourished, no distress, non-toxic, BMI 43 EYE EXAM: normal conjunctiva, PERRL and EOM's grossly intact OROPHARYNX: no exudate, no erythema, lips, buccal mucosa, and tongue normal and mucous membranes are moist NECK: supple, no nuchal rigidity, no adenopathy, non-tender LUNGS: Diminished bilaterally to auscultation. Normal chest wall mechanics, no w/r/r, increased work of breathing, tachypnea, conversational dyspnea HEART: no murmurs, S1 normal and S2 normal ABDOMEN: abdomen soft, non-tender, normo-active bowel sounds, no masses, no rebound or guarding. BACK: Back is symmetrical on inspection and there is no deformity, no midline tenderness, no CVA tenderness. SKIN: no rashes, petechiae, orbruising UPPER EXTREMITIES: upper extremities are grossly normal. FROM, nml pulses b/l. LOWER EXTREMITIES: No pitting edema. FROM, nml pulses b/l. NEURO EXAM: Normal sensorium, cranial nerves II-XII grossly intact, normal speech, no facial droop,nogross weakness of arms, no gross weakness of legs. Gross sensation intact. No ataxia. Vital Signs: reviewed and remarkable Differential Diagnosis: COPD exacerbation, pneumonia, aspiration, ACS, CHF, PE, as well as others were considered MEDICAL DECISION MAKING: THis is a 62 yo female who presents with increased SOB via EMS. Patient afebrile and VS stable. Initial exam with diminished lung sounds, moderate distress, and patient wanting to sit upright. GIven hx and recent evaluation for the same, labs drawn and sent, IV established, EKG and CXR performed and interpreted at bedside, and patient placed on telemetry. She was given a continuous neb treatment with improvement as well as IV mag, IV solu medrol, IV ativan, and IVF. Patient appeared markedly improved with decreased effort, faint scattered expiratory wheeze on repeat exam. Patient was noted to have significant PVC's following continuous neb treatment. She was monitored and this slowly improved but didn't resolve. No persistent VT although she was frequently have 2-3 beat PVC's. She denied palpitations and cp. Labs reassuring. I did not feel patient required CT chest as she had one less than 24 hours prior during at ER visit. THis was reviewed with her. Patient was able to ambulate without hypoxia although reported she still felt SOB. She also reported persistent orthopnea. Patient felt uncomfortable going home and case discussed with hospitalist for additional evaluation and treatment. Consultation(s): 1540: Discussed with Dr. Suggs for admission. ER Treatment Provided: See below 1440: Patient states she feels improved although not back to normal. Patient states she still feels breathing is worse with ambulation and attempts at reclining. Diagnostics Interpreted By Me: -ECG: Normal sinus at 86, leftward axis, normal QRS and QTc, frequent PVCs noted, nonspecific ST/T wave change -Cardiac Monitoring: An order was placed for continuous cardiac monitoring. The monitor shows a rate of 104 with sinus tachycardia rhythm. -Laboratory studies: As stated above and show below. -Imaging studies: X-ray Chest: A single view study of the chest was reviewed and was negative for cardiomegaly, focal infiltrate, effusion, pulmonary edema, or wide mediastinum. 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 Marks; has not seen in 2 years- per patient, she states she was told she no longer needed to follow with PCP Restless leg syndrome Right facial swelling Right flank pain Weakness on right side of face Surgical History H/O ovarian cystectomy H/O splenectomy 10+ years ago (D/T ITP) History of carpal tunnel surgery R/L Hx of cardiac cath = NO STENTS Hx of colonoscopy Hx of dilation and curettage Previous back surgery S/P cholecystectomy S/P gastric bypass S/P rotator cuff repair RIGHT Family History Father Asthma Myocardial infarction Mother Diabetes Hypertension Myocardial infarction Sister Diabetes Brother Myocardial infarction Brother Heart disease Denies family history of Stroke Social History Smoking Status: Former smoker Tobacco Type: Cigarettes Second Hand Exposure: No; Do You Dip or Chew Tobacco: No; Hx Alcohol Use: No Hx Substance Use: No Preferred Language: Kiswahili Communication Ability: Effective Board Filler Required: No Beliefs That Will Affect Care: None marital status: Current Living Situation: Other Current Living Situation Comment: Lives in an apartment with friends current occupational status: unemployed and disabled Feels Safe at Home: No Is there a partner from a previous relationship who is making you feel unsafe now?: No Assistive Devices: Cane, Denture - Upper, Denture - Lower and Glasses Allergies Allergies Allergy/AdvReac Type Severity Reaction Status Date / Time adhesive tape Allergy Mild tears skin Verified 03/23/21 13:23 and blister ibuprofen Allergy Mild advised to Verified 03/23/21 13:23 avoid s/p gastric bypass ferric carboxymaltose Allergy Unknown Verified 03/23/21 13:23 [From Injectafer] Home Meds Home Medications Medication Instructions Recorded Confirmed omeprazole 40 mg capsule,delayed 40 mg PO QAM 02/15/19 12/07/22 release furosemide 20 mg tablet (Lasix) 20 mg PO DAILY PRN Edema 01/02/21 12/07/22 Previous Rx's Medication Instructions Recorded albuterol sulfate 90 mcg/actuation 2 puff inhalation QID PRN 12/09/22 aerosol inhaler Shortness Of Breath 30 days #1 ea amitriptyline 50 mg tablet 50 mg PO HS #14 tabs 12/09/22 bupropion HCl 150 mg 24 hr tablet, 150 mg PO QAM #30 tabs 12/09/22 extended release fluticasone 250 mcg-salmeterol 50 1 inh inhalation Q12H PRN 12/09/22 mcg/dose blistr powdr for Shortness Of Breath Or Wheezing 30 inhalation (Advair Diskus) days #1 ea lisinopril 10 1 tab PO QAM #30 tabs 12/09/22 mg-hydrochlorothiazide 12.5 mg tablet (Zestoretic) prednisone 10 mg tablet 40 mg PO DAILY #24 tabs 12/09/22 ropinirole 0.25 mg tablet 0.25 mg PO HS #30 tabs 12/09/22 tiotropium bromide 2.5 2 inh inhalation DAILY 30 days #4 12/09/22 mcg/actuation mist for inhalation grams (Spiriva Respimat) Results & Data (ED) Vital Signs Vital Signs - 24 hr 12/07/22 09:08 12/07/22 09:16 12/07/22 09:16 Temperature 36.9 C Temperature Source Oral Pulse Rate 87 Pulse Rate [Apical] Pulse Rate [Exercises] Pulse Rate from SpO2 Sensor Respiratory Rate 26 H Respiratory Effort / Characteristics Spontaneous Grunting Spontaneous Grunting Respiratory Depth Normal Respiratory Pattern Tachypnea Regular Tachypnea Blood Pressure 118/80 Blood Pressure [Right Arm] Blood Pressure Mean 92 Blood Pressure Mean [Right Arm] Blood Pressure Position Sitting Pulse Oximetry 98 97 Pulse Oximetry [Exercises] Pulse Oximetry [Recovery] Pulse Oximetry [Resting] Oxygen Delivery Method Room Air Room Air Room Air Sepsis Recent Fever Within 48 Hours No Sepsis New/Unexplained Change in Mental Status No Sepsis Action Taken by Nursing No Action Required 12/07/22 09:12 12/07/22 10:04 12/07/22 11:30 Temperature Temperature Source Pulse Rate 82 Pulse Rate [Apical] 85 Pulse Rate [Exercises] Pulse Rate from SpO2 Sensor Respiratory Rate 20 Respiratory Effort / Characteristics Non-Labored Spontaneous Respiratory Depth Respiratory Pattern Blood Pressure Blood Pressure [Right Arm] 150/70 H Blood Pressure Mean Blood Pressure Mean [Right Arm] 96 Blood Pressure Position Pulse Oximetry 97 Pulse Oximetry [Exercises] Pulse Oximetry [Recovery] Pulse Oximetry [Resting] Oxygen Delivery Method Room Air Sepsis Recent Fever Within 48 Hours Sepsis New/Unexplained Change in Mental Status Sepsis Action Taken by Nursing 12/07/22 13:04 12/07/22 14:35 12/07/22 09:15 Temperature Temperature Source Pulse Rate 96 H 97 H Pulse Rate [Apical] Pulse Rate [Exercises] 118 H Pulse Rate from SpO2 Sensor 98 H Respiratory Rate 27 H Respiratory Effort / Characteristics Respiratory Depth Respiratory Pattern Blood Pressure Blood Pressure [Right Arm] Blood Pressure Mean Blood Pressure Mean [Right Arm] Blood Pressure Position Pulse Oximetry 98 Pulse Oximetry [Exercises] 92 Pulse Oximetry [Recovery] 96 Pulse Oximetry [Resting] 95 Oxygen Delivery Method Room Air Sepsis Recent Fever Within 48 Hours Sepsis New/Unexplained Change in Mental Status Sepsis Action Taken by Nursing 12/07/22 09:15 12/07/22 11:00 12/07/22 11:29 Temperature Temperature Source Pulse Rate 107 H Pulse Rate [Apical] Pulse Rate [Exercises] Pulse Rate from SpO2 Sensor 72 Respiratory Rate 14 Respiratory Effort / Characteristics Respiratory Depth Respiratory Pattern Blood Pressure 118/80 150/78 H Blood Pressure [Right Arm] Blood Pressure Mean 103 122 Blood Pressure Mean [Right Arm] Blood Pressure Position Pulse Oximetry 98 Pulse Oximetry [Exercises] Pulse Oximetry [Recovery] Pulse Oximetry [Resting] Oxygen Delivery Method Sepsis Recent Fever Within 48 Hours Sepsis New/Unexplained Change in Mental Status Sepsis Action Taken by Nursing 12/07/22 11:29 12/07/22 12:00 12/07/22 12:00 Temperature Temperature Source Pulse Rate 106 H 113 H Pulse Rate [Apical] Pulse Rate [Exercises] Pulse Rate from SpO2 Sensor 72 87 Respiratory Rate 15 19 Respiratory Effort / Characteristics Respiratory Depth Respiratory Pattern Blood Pressure 154/73 H Blood Pressure [Right Arm] Blood Pressure Mean 112 Blood Pressure Mean [Right Arm] Blood Pressure Position Pulse Oximetry 93 91 Pulse Oximetry [Exercises] Pulse Oximetry [Recovery] Pulse Oximetry [Resting] Oxygen Delivery Method Sepsis Recent Fever Within 48 Hours Sepsis New/Unexplained Change in Mental Status Sepsis Action Taken by Nursing 12/07/22 13:00 12/07/22 13:00 12/07/22 14:30 Temperature Temperature Source Pulse Rate 110 H 101 H Pulse Rate [Apical] Pulse Rate [Exercises] Pulse Rate from SpO2 Sensor 106 H Respiratory Rate 21 16 Respiratory Effort / Characteristics Respiratory Depth Respiratory Pattern Blood Pressure 143/104 H Blood Pressure [Right Arm] Blood Pressure Mean 108 Blood Pressure Mean [Right Arm] Blood Pressure Position Pulse Oximetry 95 Pulse Oximetry [Exercises] Pulse Oximetry [Recovery] Pulse Oximetry [Resting] Oxygen Delivery Method Sepsis Recent Fever Within 48 Hours Sepsis New/Unexplained Change in Mental Status Sepsis Action Taken by Nursing 12/07/22 15:00 12/07/22 15:30 12/07/22 15:45 Temperature Temperature Source Pulse Rate 107 H 103 H Pulse Rate [Apical] 99 H Pulse Rate [Exercises] Pulse Rate from SpO2 Sensor 95 H 96 H Respiratory Rate 16 18 21 Respiratory Effort / Characteristics Respiratory Depth Respiratory Pattern Blood Pressure Blood Pressure [Right Arm] 163/98 H Blood Pressure Mean Blood Pressure Mean [Right Arm] 119 Blood Pressure Position Pulse Oximetry 95 97 96 Pulse Oximetry [Exercises] Pulse Oximetry [Recovery] Pulse Oximetry [Resting] Oxygen Delivery Method Room Air Sepsis Recent Fever Within 48 Hours Sepsis New/Unexplained Change in Mental Status Sepsis Action Taken by Nursing Laboratory Data 12/07/22 09:15 12/07/22 09:15 Lab Results 12/07/22 12/07/22 12/07/22 Range/Units 09:15 09:15 15:12 WBC 11.73 H (4.8-10.8) K/ul RBC 4.55 (4.20-5.40) M/uL Hgb 12.0 (12.0-16.0) g/dl Hct 37.5 (37.0-47.0) % MCV 82.4 (80.0-100.0) fL MCH 26.4 (25.0-34.0) pg MCHC 32.0 (32.0-36.0) g/dL RDW Std Deviation 46.4 H (36.4-46.3) fL RDW Coeff of Jaz 15.3 H (11.5-14.5) % Plt Count 449 H (130-400) K/uL MPV 11.2 (9.4-12.4) fL Immature Gran % (Auto) 0.3 % Neut % (Auto) 68.8 % Lymph % (Auto) 23.1 % Griggs % (Auto) 7.5 % Eos % (Auto) 0.0 % Baso % (Auto) 0.3 % Neut # (Auto) 8.06 H (1.40-6.50) K/uL Lymph # (Auto) 2.71 (1.2-3.4) K/uL Gr[place]gs # (Auto) 0.88 H (0.11-0.59) K/uL Eos # (Auto) 0.00 (0-0.50) K/uL Baso # (Auto) 0.04 (0-0.2) K/uL Immature Gran # (Auto) 0.04 (0.01-0.20) K/uL Sodium 139 (136-145) mmol/L Potassium 3.7 (3.5-5.1) mmol/L Chloride 103 (98-107) mmol/L Carbon Dioxide 23 (21-32) mmol/L Anion Gap 13 H (3-11) BUN 18 (6-23) mg/dl Creatinine 0.85 (0.6-1.2) mg/dl Est Cr Clr Drug Dosing 80.8 ml/min Est GFR ( Amer) 84.5 ml/min Est GFR (Non-Af Amer) 72.9 ml/min BUN/Creatinine Ratio 21.2 H (10-20) Glucose 112 H (70-99(Fasting)) mg/dl Calcium 9.8 (8.6-10.3) mg/dl Magnesium 1.6 L (1.7-2.4) mg/dl Total Bilirubin 0.8 (0.2-1.0) mg/dl AST 17 (13-39) U/L ALT 13 (7-52) U/L Alkaline Phosphatase 100 (34-104) U/L Troponin I High Sens 11.2 (0-14) pg/ml Total Protein 6.9 (6.0-8.3) gm/dl Albumin 3.9 (3.4-5.0) gm/dl Globulin 3.0 (2.5-4.0) gm/dl Albumin/Globulin Ratio 1.3 (0.9-2) Adenovirus (PCR) Not Detected (NotDetected) B. pertussis DNA (PCR) Not Detected (NotDetected) B.parapertussis DNA PCR Not Detected (NotDetected) C. pneumoniae DNA (PCR) Not Detected (NotDetected) Coronavirus OC43 (PCR) Not Detected (NotDetected) Coronavirus HKU1 (PCR) Not Detected (NotDetected) Coronavirus 229E (PCR) Not Detected (NotDetected) SARS-CoV-2 (PCR) Not Detected (NotDetected) Coronavirus NL63 (PCR) Not Detected (NotDetected) Human Metapneumovir PCR Not Detected (NotDetected) Influenza Type A (PCR) Not Detected (NotDetected) Influenza Type B (PCR) Not Detected (NotDetected) M. pneumoniae (PCR) Not Detected (NotDetected) Parainfluenza 1 (PCR) Not Detected (NotDetected) Parainfluenza 2 (PCR) Not Detected (NotDetected) Parainfluenza 3 (PCR) Not Detected (NotDetected) Parainfluenza 4 (PCR) Not Detected (NotDetected) RSV (PCR) Not Detected (NotDetected) Entero/Rhino (PCR) Not Detected (NotDetected) Administered Medications Discontinued Medications Acetaminophen (Acetaminophen 325 Mg Tab) 650 mg PO Q4H PRN PRN Reason: Pain or Fever Stop: 01/06/23 19:30 Last Admin: 12/09/22 02:38 Dose: 650 mg Documented By: SUMAN Albuterol (Albut/Ipratrop 3mg/0.5mg Neb 3 Ml Vial) 12 ml NEB ONE ONE; Protocol Stop: 12/07/22 09:46 Last Admin: 12/07/22 10:04 Dose: 12 ml Documented By: [facility] Amitriptyline HCl (Amitriptyline Hcl 50 Mg Tab) 50 mg PO HS LIDA Stop: 01/07/23 20:59 Last Admin: 12/08/22 20:13 Dose: 50 mg Documented By: SUMAN Bupropion HCl (Bupropion Xl 150 Mg Tabcr) 150 mg PO QAM LIDA Stop: 01/07/23 08:59 Last Admin: 12/09/22 09:26 Dose: 150 mg Documented By: Admin: 12/08/22 09:02 Dose: 150 mg Documented By: FIORELLA Enoxaparin Sodium (Enoxaparin Inj 40 Mg/0.4 Ml Syr) 40 mg SQ QAM [facility] Stop: 01/07/23 08:59 Last Admin: 12/09/22 09:26 Dose: 40 mg Documented By: Admin: 12/08/22 09:02 Dose: 40 mg Documented By: FIORELLA Fluticasone/Vilanterol (Fluticasone/Vilanterol 100/25mcg 14 Puffs/Inhaler) 1 puffs INH DAILY [facility] Stop: 01/07/23 16:29 Last Admin: 12/09/22 09:26 Dose: 1 puffs Documented By: Admin: 12/08/22 17:03 Dose: 1 puffs Documented By: FIORELLA Lisinopril/HCTZ (Lisinopril/Hctz 10/12.5mg Tab) [facility] [place] Stop: 01/07/23 08:59 Last Admin: 12/09/22 09:26 Dose: 1 tab Documented By: Admin: 12/08/22 09:02 Dose: 1 tab Documented By: FIORELLA Magnesium Sulfate/Dextrose (Magnesium Sulfate / D5w) 1 gm in 100 mls @ 100 mls/hr IV NOW STA Stop: 12/07/22 10:44 Last Infusion: 12/07/22 12:36 Dose: 0 mls/hr Documented By: Admin: 12/07/22 10:08 Dose: 100 mls/hr Documented By: LAURA Sodium Chloride (Nss 1000ml) 1,000 mls @ 125 mls/hr IV .Q8H [facility]IDA Stop: 01/06/23 09:59 Last Infusion: 12/07/22 12:35 Dose: 0 mls/hr Documented By: Admin: 12/07/22 10:08 Dose: 125 mls/hr Documented By: LAURA Magnesium Sulfate/Dextrose (Magnesium Sulfate / D5w) 1 gm in 100 mls @ 100 mls/hr IV NOW STA Stop: 12/07/22 13:06 Last Infusion: 12/07/22 13:14 Dose: 0 mls/hr Documented By: Admin: 12/07/22 12:15 Dose: 100 mls/hr Documented By: LAYNE Famotidine (Pepcid 20mg Iv Push) 20 mg in 5 mls @ 2.5 mls/min IV NOW STA Stop: 12/07/22 12:07 Last Admin: 12/07/22 12:14 Dose: 2.5 mls/min Documented By: LAYNE Lorazepam (Lorazepam 2 Mg/1 Ml Vial) 0.25 mg IV NOW STA Stop: 12/07/22 09:47 Last Admin: 12/07/22 10:07 Dose: 0.25 mg Documented By: LAURA Lorazepam (Lorazepam 0.5 Mg Tab) 0.5 mg PO DAILY PRN PRN Reason: Anxiety Stop: 01/06/23 19:30 Last Admin: 12/07/22 21:11 Dose: 0.5 mg Documented By: SUMAN Menthol (Cough Drop (Sugar Free) Will 24 Will/1 Box) 1 will BUCCAL QID PRN PRN Reason: Sore Throat Stop: 01/07/23 14:42 Last Admin: 12/08/22 17:01 Dose: 1 will Documented By: FIORELLA Methylprednisolone (Methylprednisolone 125 Mg/2 Ml Vial) 60 mg IV NOW STA Stop: 12/07/22 12:47 Last Admin: 12/07/22 12:56 Dose: 60 mg Documented By: LAURA Metoprolol Succinate (Metoprolol Succ 25mg Ext Rel Tab) 25 mg PO HS [facility] Stop: 01/06/23 20:59 Last Admin: 12/08/22 20:13 Dose: 25 mg Documented By: Admin: 12/07/22 21:05 Dose: 25 mg Documented By: SUMAN Pneumococcal Polyvalent Vaccine (Pneumococcal Polysaccharides 25 Mcg/0.5 Ml Vial/Syr) 25 mcg IM .ONCE ONE Stop: 12/08/22 00:26 Last Admin: 12/09/22 09:28 Dose: Not Given Documented By: FIORELLA Potassium Chloride (Potassium Chloride Crtab 20 Meq Tabcr) 40 meq PO NOW STA Stop: 12/07/22 12:27 Last Admin: 12/07/22 12:32 Dose: 40 meq Documented By: LAYNE Prednisone (Prednisone 20 Mg Tab) 40 mg PO DAILY [facility] Stop: 01/07/23 16:14 Last Admin: 12/09/22 09:26 Dose: 40 mg Documented By: Admin: 12/08/22 17:04 Dose: 40 mg Documented By: FIORELLA Ropinirole HCl (Ropinirole Hcl 0.25 Mg Tablet) 0.25 mg PO HS [facility] Stop: 01/07/23 20:59 Last Admin: 12/08/22 20:13 Dose: 0.25 mg Documented By: SUMAN Umeclidinium [place] (Umeclidinium [place] 62.5mcg/Blister 7 Puffs/Inhaler) 1 puffs INH QAM [facility] Stop: 01/07/23 16:14 Last Admin: 12/09/22 09:26 Dose: 1 puffs Documented By: Admin: 12/08/22 17:02 Dose: 1 puffs Documented By: FIORELLA Imaging Data Radiologist's Impression: Chest X-Ray 12/07/22 13:53 SINGLE VIEW CHEST CLINICAL HISTORY: Dyspnea FINDINGS: 2 AP, portable, upright chest radiographs are compared to chest x-ray and chest CT dated 12/06/2022. The cardiomediastinal silhouette is unremarkable noting atherosclerotic calcification of the thoracic aorta. Chronic additional thickening is similar to previous. There is mild bibasilar scarring/atelectasis. The lungs and pleural spaces are otherwise clear. No pneumothorax is seen. The skeletal structures are osteopenic. The bony thorax is grossly intact. IMPRESSION: No active disease in the chest. ACT 112: Negative or not required by law. Electronically signed by: Alberto Aldrich M.D. 12/07/2022 2:17 PM Discharge Plan Visit Data Chief Complaint: Shortness of Breath/Dyspnea ED Provider: Ivory Easley Discharge Problem: Acute dyspnea, Acute exacerbation of chronic obstructive pulmonary disease (COPD), Noncompliance, Frequent PVCs Patient Disposition: Admitted As Inpatient Discharge Instructions Interventions: ED Discharge Assessment Last Done: 12/07/22 18:05
[2022-12-07] MEDS ORDERED: FAMOTIDINE 20MG IV PUSH 20 MG/5 ML SYR IV STA (12:06)
[2022-12-07] MEDS ORDERED: POTASSIUM CHLORIDE CRTAB 20 MEQ TABCR PO STA (12:26)
[2022-12-07] MEDS ORDERED: methylPREDNISolone 125 MG/2 ML VIAL IV STA (12:46)
--- NOTE | 2022-12-07 14:18 | XRay Report ---
SINGLE VIEW CHEST CLINICAL HISTORY: Dyspnea FINDINGS: 2 AP, portable, upright chest radiographs are compared to chest x-ray and chest CT dated 12/06/2022. The cardiomediastinal silhouette is unremarkable noting atherosclerotic calcification of the thoracic aorta. Chronic additional thickening is similar to previous. There is mild bibasilar scarrin g/atelectasis. The lungs and pleural spaces are otherwise clear. No pneumothorax is seen. The skeleta l structures are osteopenic. The bony thorax is grossly intact. IMPRESSION: No active disease in the chest. ACT 112: Negative or not required by law. Electronically signed by: Alberto Aldrich M.D. 12/07/2022 2:17 PM
--- NOTE | 2022-12-07 16:24 | History & Physical Report ---
Date of Service December 07, 2022 Assessment & Plan (1) Acute dyspnea: Plan: Acute/unstable - moderate risk - Suspect multifactorial - but more suspicious that this may be related to valvular heart disease - Place in observation to med/tele - Heart healthy diet - CBC and CMP have been reviewed, no significant abnormalities. WBC 11.73 suspect may be steroid related. - Repeat HS Trop now & obtain TTE - O2 sat 96-98% on room air and w/o wheezing, dyspnea not due to COPD exac - PRN Xopenex/Atrovent q6 - No need for steroids or antibiotics - Resp biofire ordered/pending - COVID neg (2) Aortic stenosis: Plan: Chronic/unstable - moderate risk - Suspect that this may be contributing to her primary problem - Last echo in chart from 2015, dilated cardiomyopathy (severely dilated LV), LVEF 40%, mild global hypokinesis with moderate hypokinesis of the inferior wall, mild , grade I diastolic dysfunction - Previously followed with Dr. Marks but hasn't seen in 2 years - Now requesting to follow with [facility] - has seen Dr. Frank in the past as well - Repeat echo as above (3) Non-ischemic cardiomyopathy: Plan: Chronic/uncertain stability - moderate to high risk - Last echo from 2016, repeat echo has been ordered to reassess LV - Experiencing multiple PVCs on tele monitor in ED - Previously on Metoprolol Succinate 25mg daily which will be restarted - Pending echo, may need switched from Lisinopril to Entresto to optimize med management (4) COPD (chronic obstructive pulmonary disease): Plan: Chronic/stable - No evidence of acute bronchospasm, not hypoxic or hypercapnic - Would benefit from resumption of her prior meds which included combo ICS/LABA - Resume and rx upon d/c (Advair 250/50mcg inh BID) (5) Depression: Plan: Chronic/stable - Resume Venlafaxine (6) Essential hypertension: Plan: Chronic/stable - Currently being treated with Lisinopril HCTZ - Will resume 10mg/12.5mg daily - monitor since also placing on Toprol XL - Monitor BP and adjust meds accordingly Plan Initiate Lovenox for DVT ppx. AM labs have been ordered in addition to TSH with reflex T4. Above plan of care has been d/w Dr. Walker who will also see and evaluate this patient. Further orders will be implemented as the hospitalization warrants. History of Present Illness Chief Complaint: shortness of breath Primary Care Provider: Galina Simmons DO Mary Hubbard is a 62 yo F with a pmhx of HTN, depression/anxiety, and COPD who presents to the ER today for the second time over 24 hours due to ongoing dyspnea. She reports that she woke up this morning short of breath, is exacerbated by exertion but ultimately nothing else seems to make it worse and denies any alleviating factors. She notes associated chest tightness that remains in her chest, no radiation, and is not associated with nausea or diaphoresis. She does have c/o orthopnea and feels lightheaded/near syncopal with exertion. She endorses a h/o cardiac murmur and used to follow with cardiology (Dr. Marks) prior to being incarcerated. She notes that she has also been seen by Dr. Frank for a prior cardiac catheterization. She denies having a h/o heart failure, MA, or coronary artery disease/stenting. Her ER w/u today revealed a normal pulse ox and normal CXR. She was treated for a possible COPD exacerbation with Methylprednisolone and multiple Duonebs but despite that, continues to endorse breathlessness. Her labs are essentially unrevealing, her wbc count is minimally elevated at 11 with slight left shift, hs trop is normal at 11, EKG which is dated from yesterday and not repeated today demonstrated NSR with a left axis deviation and PVCs. Due to persistence of symptoms, she has been referred to hospitalists for admission. Allergies Allergy/AdvReac Type Severity Reaction Status Date / Time adhesive tape Allergy Mild tears skin Verified 03/23/21 13:23 and blister ibuprofen Allergy Mild advised to Verified 03/23/21 13:23 avoid s/p gastric bypass ferric carboxymaltose Allergy Unknown Verified 03/23/21 13:23 [From Injectafer] Home Medications Medication Instructions Recorded Confirmed Type citalopram 20 mg tablet 20 mg PO QAM 02/15/19 12/07/22 History fluticasone 250 mcg-salmeterol 50 1 inh inhalation Q12H PRN 02/15/19 12/07/22 History mcg/dose blistr powdr for Shortness Of Breath Or Wheezing inhalation (Advair Diskus) ipratropium 20 mcg-albuterol 100 1 puff inhalation Q6H PRN 02/15/19 12/07/22 History mcg/actuation mist for inhalation Shortness Of Breath Or Wheezing (Combivent Respimat) lisinopril 5 mg tablet 5 mg PO .ON HOLD 02/15/19 12/07/22 History metoprolol succinate 25 mg 25 mg PO HS 02/15/19 12/07/22 History tablet,extended release 24 hr omeprazole 40 mg capsule,delayed 40 mg PO QAM 02/15/19 12/07/22 History release pramipexole 0.5 mg tablet 0.5 mg PO HS 02/15/19 12/07/22 History pregabalin 100 mg capsule (Lyrica) 100 mg PO TID PRN Pain 02/15/19 12/07/22 History ropinirole 0.25 mg tablet 0.25 mg PO BID 02/15/19 12/07/22 History albuterol sulfate 90 mcg/actuation 2 puff inhalation QID PRN 01/02/21 12/07/22 History aerosol inhaler (Ventolin HFA) Shortness Of Breath amitriptyline 50 mg tablet 50 mg PO HS 01/02/21 12/07/22 History bupropion HCl 150 mg 24 hr tablet, 150 mg PO QAM 01/02/21 12/07/22 History extended release furosemide 20 mg tablet (Lasix) 20 mg PO DAILY PRN Edema 01/02/21 12/07/22 History lorazepam 0.5 mg tablet 0.5 mg PO DAILY PRN Anxiety 01/02/21 12/07/22 History meloxicam 15 mg tablet (Mobic) 15 mg PO DAILY 01/02/21 12/07/22 History nitroglycerin 0.4 mg sublingual 0.4 mg sublingual Q5M PRN Chest 01/02/21 12/07/22 History tablet Pain potassium chloride 10 mEq 10 meq PO BID 01/02/21 12/07/22 History capsule,extended release promethazine 25 mg tablet 25 mg PO QID PRN Nausea 01/02/21 12/07/22 History tramadol 50 mg tablet 100 mg PO Q4H PRN Pain 01/02/21 12/07/22 History cyanocobalamin (vitamin B-12) 0 mcg subcut USEASDIRECTD 12/07/22 12/07/22 History 1,000 mcg/mL injection solution prednisone 50 mg tablet 0 mg PO DAILY 12/07/22 12/07/22 History Past Med/Surg History Medical History (Updated 12/07/22 @ 16:14 by Ashlie Keane PA-C) Abnormal results of thyroid function studies Bronchitis COPD (chronic obstructive pulmonary disease) stable COPD exacerbation Depression GERD (gastroesophageal reflux disease) controlled H/O Ramirez's palsy 01/2019 resolved predsione x 5 days 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 Marks; has not seen in 2 years- per patient, she states she was told she no longer needed to follow with PCP Restless leg syndrome Right facial swelling Right flank pain Weakness on right side of face Surgical History H/O ovarian cystectomy H/O splenectomy 10+ years ago (D/T ITP) History of carpal tunnel surgery R/L Hx of cardiac cath s= NO STENTS Hx of colonoscopy Hx of dilation and curettage Previous back surgery S/P cholecystectomy S/P gastric bypass S/P rotator cuff repair RIGHT Family History Father Asthma Myocardial infarction Mother Diabetes Hypertension Myocardial infarction Sister Diabetes Brother Myocardial infarction Brother Heart disease Denies family history of Stroke Social History Smoking Status: Former smoker Tobacco Type: Cigarettes Second Hand Exposure: No; Do You Dip or Chew Tobacco: No; Hx Alcohol Use: No Hx Substance Use: No Preferred Language: Swedish Communication Ability: Effective Sales And Distribution Clerk Required: No Beliefs That Will Affect Care: None marital status: Current Living Situation: Alone current occupational status: unemployed and disabled Feels Safe at Home: Yes Assistive Devices: Denture - Upper, Denture - Lower and Glasses Physical Exam Physical Exam: GENERAL: 62 yo obese F. AAOx4. NAD. LUNGS: Nonlabored. Clear to auscultation bilaterally CARDIOVASCULAR: Regular rate and rhythm with 3/6 GEO. No JVD. ABDOMEN: Soft, non-tender and non-distended. BS normoactive x 4 quad. EXTREMITIES: No edema. Non-tender. Peripheral pulses +2/4. Results & Data Results & Data Vital Signs (Past 12 Hours) Vital Signs Temp Pulse Pulse Pulse Resp BP BP 12/07/22 15:45 99 H 21 163/98 H 12/07/22 15:30 103 H 18 12/07/22 15:00 107 H 16 12/07/22 14:30 101 H 16 12/07/22 13:00 110 H 21 12/07/22 13:00 143/104 H 12/07/22 12:00 113 H 19 12/07/22 12:00 154/73 H 12/07/22 11:29 106 H 15 12/07/22 11:29 150/78 H 12/07/22 11:00 107 H 14 12/07/22 09:15 118/80 12/07/22 09:15 97 H 27 H 12/07/22 14:35 118 H 12/07/22 13:04 96 H 12/07/22 11:30 150/70 H 12/07/22 10:04 85 20 12/07/22 09:12 82 12/07/22 09:16 12/07/22 09:16 12/07/22 09:08 36.9 C 87 26 H 118/80 Pulse Ox Pulse Ox Pulse Ox Pulse Ox O2 Del Method 12/07/22 15:45 96 Room Air 12/07/22 15:30 97 12/07/22 15:00 95 12/07/22 14:30 12/07/22 13:00 95 12/07/22 13:00 12/07/22 12:00 91 12/07/22 12:00 12/07/22 11:29 93 12/07/22 11:29 12/07/22 11:00 98 12/07/22 09:15 12/07/22 09:15 98 12/07/22 14:35 92 96 95 Room Air 12/07/22 13:04 12/07/22 11:30 12/07/22 10:04 97 Room Air 12/07/22 09:12 12/07/22 09:16 97 Room Air 12/07/22 09:16 Room Air 12/07/22 09:08 98 Room Air Laboratory Results 12/07/22 09:15 12/07/22 09:15 Diagnostic Findings Chest X-Ray 12/07/22 13:53 SINGLE VIEW CHEST CLINICAL HISTORY: Dyspnea FINDINGS: 2 AP, portable, upright chest radiographs are compared to chest x-ray and chest CT dated 12/06/2022. The cardiomediastinal silhouette is unremarkable noting atherosclerotic calcification of the thoracic aorta. Chronic additional thickening is similar to previous. There is mild bibasilar scarring/atelectasis. The lungs and pleural spaces are otherwise clear. No pneumothorax is seen. The skeletal structures are osteopenic. The bony thorax is grossly intact. IMPRESSION: No active disease in the chest. ACT 112: Negative or not required by law. Electronically signed by: Alberto Aldrich M.D. 12/07/2022 2:17 PM ECG Additional Comments: From 12/06/22 - not repeated on 12/07: NSR with PVCs and L axis deviation Supervising Physician Co-Signing Physician Notes Patient seen and examined, chart reviewed, case discussed with Ashlie Keane PA-C and I agree with the assessment and plan as above except as otherwise noted Labs and images reviewed Mary is a 62-year-old female seen in the ER for acute dyspnea. Initially with diminished air movement, somewhat improved following nebulizers with trace wheezing improved on hospitalist assessment. Respiratory bio fire is pending. Does have a systolic murmur at bedside? AMS. Patient reports her symptoms are exacerbated by laying flat, she does not have evidence of fluid overload on imaging and no evidence of PEs. Clinically stable at bedside. Agree with assessment and management above PG Care Time/CCT Total # of Minutes Spent Total Time Spent with Patient: Total time spent is greater than 50% in coordination of care (as documented) at patient's floor/unit and/or counseling patient: Coding Level of Care Code 14699 INT INP/OBS CARE 3/75MIN Diagnoses Acute dyspnea R06.00 Aortic stenosis I35.0 Non-ischemic cardiomyopathy I42.8 COPD (chronic obstructive pulmonary disease) J44.9 Depression F32.9 Essential hypertension I10
[2022-12-07 16:40] LABS: Adenovirus PCR Not Detected (NotDetected); Bordetella parapertussis PCR Not Detected (NotDetected); Bordetella pertussis PCR Not Detected (NotDetected); Chlamydia pneumoniae PCR Not Detected (NotDetected); Coronavirus 229E PCR Not Detected (NotDetected); Coronavirus CoV-2 (COVID19)PCR Not Detected (NotDetected); Coronavirus HKU1 PCR Not Detected (NotDetected); Coronavirus NL63 PCR Not Detected (NotDetected); Coronavirus OC43PCR Not Detected (NotDetected); Human Metapneumovirus PCR Not Detected (NotDetected); Influenza A PCR Not Detected (NotDetected); Influenza B PCR Not Detected (NotDetected); Mycoplasma pneumoniae PCR Not Detected (NotDetected); Parainfluenza Virus 1 PCR Not Detected (NotDetected); Parainfluenza Virus 2 PCR Not Detected (NotDetected); Parainfluenza Virus 3 PCR Not Detected (NotDetected); Parainfluenza Virus 4 PCR Not Detected (NotDetected); Respiratory Syncytial VirusPCR Not Detected (NotDetected); Rhinovirus/Enterovirus PCR Not Detected (NotDetected)
[2022-12-07] MEDS ORDERED: ONDANSETRON INJ 2 MG/ML 2 ML VIAL IV PRN (19:31)
[2022-12-07] MEDS ORDERED: POLYETHYLENE (MIRALAX) 17 GM PACK PO PRN (19:31)
[2022-12-07] MEDS ORDERED: LEVALBUTEROL HCL 0.63 MG/3 ML NEB NEB PRN (19:31)
[2022-12-07] MEDS ORDERED: IPRATROPIUM BROMIDE NEB SOLN 0.02% 2.5 ML VIAL INH PRN (19:31)
[2022-12-07] MEDS ORDERED: ALUMINUM/MAGNESIUM SUSP 30 ML UDC PO PRN (19:31)
[2022-12-07] MEDS ORDERED: XOPENEX/ATROVENT 0.63mg/0.5MG NEB COMBO NEB PRN (19:31)
[2022-12-07] MEDS ORDERED: MAGNESIUM HYDROXIDE SUSP 30 ML UDC PO PRN (19:31)
[2022-12-07] MEDS ORDERED: ACETAMINOPHEN 325 MG TAB PO PRN (19:31)
[2022-12-07] MEDS ORDERED: LORazepam 0.5 MG TAB PO PRN (19:31)
[2022-12-07] MEDS ORDERED: FLUTICASONE/VILANTEROL 100/25MCG 14 PUFFS/INHALER INH PRN (19:41)
[2022-12-07] MEDS: METOPROLOL SUCC 25MG EXT REL TAB PO SCH (21:05)
[2022-12-08] MEDS ORDERED: PNEUMOCOCCAL POLYSACCHARIDES 25 MCG/0.5 ML VIAL/SYR IM ONE (00:25)
[2022-12-08 08:06] LABS: Calcium 9.2 mg/dl (8.6-10.3); Creatinine Clr Calc Pharmacy 97.8 ml/min; Est GFR (African American) 107.4 ml/min; Est GFR (Non-African American) 92.6 ml/min
[2022-12-08 08:13] LABS: Troponin I High Sensitivity 17.8 pg/ml (0-14)
[2022-12-08 08:15] LABS: Acanthocytes 1+; Basophils # (auto) 0.06 K/uL (0-0.2); Basophils % (auto) 0.5 %; Eosinophils # (auto) 0.01 K/uL (0-0.50); Eosinophils % (auto) 0.1 %; Hematocrit (blood only) 34.4 % (37.0-47.0); Immature Granulocytes # (auto) 0.03 K/uL (0.01-0.20); Immature Granulocytes % (auto) 0.2 %; Lymphocytes # (auto) 2.79 K/uL (1.2-3.4); Lymphocytes % (auto) 22.5 %; Mean Corpuscular Hemoglobin 26.7 pg (25.0-34.0); Mean Corpuscular Volume 83.5 fL (80.0-100.0); Mean Platelet Volume 10.8 fL (9.4-12.4); Monocytes # (auto) 1.21 K/uL (0.11-0.59); Monocytes % (auto) 9.8 %; Neutrophils # (auto) 8.29 K/uL (1.40-6.50); Neutrophils % (auto) 66.9 %; Platelet Count 367 K/uL (130-400); RDW Coefficient of Variation 15.6 % (11.5-14.5); RDW Standard Deviation 47.4 fL (36.4-46.3); Red Blood Count 4.12 M/uL (4.20-5.40); Toxic Vacuolation 1+; White Blood Count 12.39 K/ul (4.8-10.8)
[2022-12-08] MEDS: buPROPion XL 150 MG TABCR PO SCH (09:02)
[2022-12-08] MEDS: LISINOPRIL/HCTZ 10/12.5MG TAB PO SCH (09:02)
[2022-12-08] MEDS: ENOXAPARIN INJ 40 MG/0.4 ML SYR SQ SCH (09:02)
[2022-12-08] MEDS ORDERED: COUGH DROP (SUGAR FREE) LOZ 24 LOZ/1 BOX BUCCAL PRN (14:43)
--- NOTE | 2022-12-08 14:52 | XCELERA ---
[id number]
--- NOTE | 2022-12-08 15:56 | Discharge Summary ---
Date of Service December 08, 2022 Admission HPI Per Admitting Provider Mary Hubbard is a 62 yo F with a pmhx of HTN, depression/anxiety, and COPD who presents to the ER today for the second time over 24 hours due to ongoing dyspnea. She reports that she woke up this morning short of breath, is exacerbated by exertion but ultimately nothing else seems to make it worse and denies any alleviating factors. She notes associated chest tightness that remains in her chest, no radiation, and is not associated with nausea or diaphoresis. She does have c/o orthopnea and feels lightheaded/near syncopal with exertion. She endorses a h/o cardiac murmur and used to follow with cardiology (Dr. Marks) prior to being incarcerated. She notes that she has also been seen by Dr. Frank for a prior cardiac catheterization. She denies having a h/o heart failure, IA, or coronary artery disease/stenting. Her ER w/u today revealed a normal pulse ox and normal CXR. She was treated for a possible COPD exacerbation with Methylprednisolone and multiple Duonebs but despite that, continues to endorse breathlessness. Her labs are essentially unrevealing, her wbc count is minimally elevated at 11 with slight left shift, hs trop is normal at 11, EKG which is dated from yesterday and not repeated today demonstrated NSR with a left axis deviation and PVCs. Due to persistence of symptoms, she has been referred to hospitalists for admission. Discharge Data Allergies Allergy/AdvReac Type Severity Reaction Status Date / Time adhesive tape Allergy Mild tears skin Verified 03/23/21 13:23 and blister ibuprofen Allergy Mild advised to Verified 03/23/21 13:23 avoid s/p gastric bypass ferric carboxymaltose Allergy Unknown Verified 03/23/21 13:23 [From Injectafer] Consultations 12/07/22 15:42 ED Decision to Admit Stat Discharge Plan Discharge Items Patient Disposition: Home - Self-Care Reason For Visit: DYSPNEA Discharge Diagnosis: uncontrolled COPD Activity: Per Instructions section Non-emergency contact: Primary Care Provider Call non-emergency contact if: you have any medication questions and your symptoms worsen Follow-up/Referrals: Galina Simmons DO [Primary Care Provider] - (f/u SOB, uncontrolled COPD) Diet: Heart Healthy Addtl Attending Provider Instructions: You were admitted to the hospital for shortness of breath. You did not require any supplemental oxygen while hospitalized. An ultrasound of your heart (echocardiogram) was performed which showed that one of your heart valves isn't working properly. However, this dysfunctional heart valve is most likely not the cause of your symptoms. The most likely reason for you feeling short of breath is due to an exacerbation/uncontrolled COPD. To help this, you should take your inhalers regularly. A discharge summary will be sent to your primary care physician to ensure continuity of care. Please bring this discharge summary with you to your next office appointment so that your provider can review it at that time. Medications: Your medication list has been reviewed and reconciled upon discharge to ensure accuracy and continuity of care. An updated list of all your medications is included with your hospital discharge paperwork. Please review this list closely and make note of any changes to your medications. - Use your Advair Diskus twice per day each day. This is not to be used as needed. This medication is a mixture of a steroid and a long acting medicine to open up your airways. - Follow up appointments: - Make a follow up appointment with your PCP within the next week. It is very important that you follow up with them shortly after discharge from the [facility]. - Keep all of your follow up appointments as already scheduled. If you cannot make an appointment, notify your provider. CONTACT YOUR PRIMARY CARE PROVIDER if you experience any of the following: - Difficulty following your treatment plan - Difficulty taking any of your medications CALL 911 OR GO TO THE EMERGENCY DEPARTMENT if you experience any of the following: - Sudden, severe abdominal pain or nausea/vomiting - Severe chest pain or chest pain that radiates to your jaw or arm - Sudden, severe shortness of breath or difficulty breathing Pending Studies at Discharge: No Stand-Alone Forms: [facility] Cess[facility] Medications and DC Order Prescriptions: No Action amitriptyline 50 mg tablet 50 mg PO HS bupropion HCl 150 mg tablet extended release 24 hr 150 mg PO QAM furosemide [Lasix] 20 mg tablet 20 mg PO DAILY PRN (Reason: Edema) Rx Instructions: per pt he takes everyday lorazepam 0.5 mg tablet 0.5 mg PO DAILY PRN (Reason: Anxiety) meloxicam [Mobic] 15 mg tablet 15 mg PO DAILY nitroglycerin 0.4 mg tablet, sublingual 0.4 mg sublingual Q5M PRN (Reason: Chest Pain) Rx Instructions: do not exceed 3 doses per episode promethazine 25 mg tablet 25 mg PO QID PRN (Reason: Nausea) Rx Instructions: 25 mg PO; albuterol sulfate [Ventolin HFA] 90 mcg/actuation HFA aerosol inhaler 2 puff inhalation QID PRN (Reason: Shortness Of Breath) omeprazole 40 mg capsule,delayed release(DR/EC) 40 mg PO QAM pramipexole 0.5 mg tablet 0.5 mg PO HS citalopram 20 mg tablet 20 mg PO QAM ropinirole 0.25 mg tablet 0.25 mg PO BID Rx Instructions: Unsure if its twice daily, she thinks only once a day lisinopril 5 mg tablet 5 mg PO .ON HOLD metoprolol succinate 25 mg tablet extended release 24 hr 25 mg PO HS pregabalin [Lyrica] 100 mg capsule 100 mg PO TID PRN (Reason: Pain) fluticasone propion-salmeterol [Advair Diskus] 250-50 mcg/dose Blister With Device 1 inh INHALATION Q12H PRN (Reason: Shortness Of Breath Or Wheezing) Combivent Respimat 20-100 mcg/actuation Mist 1 puff INHALATION Q6H PRN (Reason: Shortness Of Breath Or Wheezing) potassium chloride 10 mEq capsule, extended release 10 meq PO BID Rx Instructions: per pt she used to take 2 capsules twice a day tramadol 50 mg tablet 100 mg PO Q4H PRN (Reason: Pain) prednisone 50 mg tablet 0 mg PO DAILY Rx Instructions: pt unsure if she still takes this. cyanocobalamin (vitamin B-12) 1,000 mcg/mL Solution 0 mcg subcut USEASDIRECTD Rx Instructions: Per pt she was supposed to have b12 injections every 3 months Admission Data Admit Date/Time: 12/07/22 15:50 Attending Provider: Jassi Mcdonald Admit Provider: Osvaldo Walker Primary Care Provider: Galina Simmons Other Providers: Osvaldo Walker
[2022-12-08] MEDS ORDERED: ALBUTEROL HFA 8 GM INHALER INH PRN (16:03)
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
[2022-12-08] MEDS: UMECLIDINIUM BROMIDE 62.5MCG/BLISTER 7 PUFFS/INHALER INH SCH (17:02)
[2022-12-08] MEDS: FLUTICASONE/VILANTEROL 100/25MCG 14 PUFFS/INHALER INH SCH (17:03)
[2022-12-08] MEDS: predniSONE 20 MG TAB PO SCH (17:04)
--- NOTE | 2022-12-08 18:04 | Billing Data ---
Date of Service December 08, 2022 Coding Level of Care Code 08366 SUB INP/OBS CARE MIN
[2022-12-08] MEDS: METOPROLOL SUCC 25MG EXT REL TAB PO SCH (20:13)
[2022-12-08] MEDS ORDERED: rOPINIRole HCL 0.25 MG TABLET PO SCH (21:00)
[2022-12-08] MEDS ORDERED: AMITRIPTYLINE HCL 50 MG TAB PO SCH (21:00)
--- NOTE | 2022-12-09 06:08 | Electrocardiogram Report ---
Test Reason : Blood Pressure : / mmHG Vent. Rate : 086 BPM Atrial Rate : 084 BPM P-R Int : 188 ms QRS Dur : 104 ms QT Int : 388 ms P-R-T Axes : 044 -30 071 degrees QTc Int : 464 ms Normal sinus rhythm with Premature ventricular complexes Left axis deviation Low voltage QRS Septal infarct , age undetermined Abnormal ECG When compared with ECG of 06-DEC-2022 16:05, No significant change Confirmed by Timoteo Brady ([id number]) on 12/09/2022 6:07:45 AM Referred By: REFERRED SELF Confirmed By:Timoteo Brady
[2022-12-09 07:21] LABS: BUN Creatinine Ratio 26.9 (10-20); Creatinine Clr Calc Pharmacy 86.2 ml/min; Est GFR (African American) 93.8 ml/min; Est GFR (Non-African American) 80.9 ml/min; Potassium 3.9 mmol/L (3.5-5.1)
[2022-12-09 07:24] LABS: Hematocrit (blood only) 35.7 % (37.0-47.0); Hemoglobin 11.6 g/dl (12.0-16.0); Mean Corpuscular Hemoglobin 26.7 pg (25.0-34.0); Mean Corpuscular Hgb Conc 32.5 g/dL (32.0-36.0); Mean Corpuscular Volume 82.3 fL (80.0-100.0); Mean Platelet Volume 11.2 fL (9.4-12.4); Platelet Count 348 K/uL (130-400); RDW Coefficient of Variation 15.7 % (11.5-14.5); RDW Standard Deviation 46.8 fL (36.4-46.3); Red Blood Count 4.34 M/uL (4.20-5.40); White Blood Count 9.97 K/ul (4.8-10.8)
[2022-12-09] MEDS: predniSONE 20 MG TAB PO SCH (09:26)
[2022-12-09] MEDS: LISINOPRIL/HCTZ 10/12.5MG TAB PO SCH (09:26)
[2022-12-09] MEDS: FLUTICASONE/VILANTEROL 100/25MCG 14 PUFFS/INHALER INH SCH (09:26)
[2022-12-09] MEDS: UMECLIDINIUM BROMIDE 62.5MCG/BLISTER 7 PUFFS/INHALER INH SCH (09:26)
[2022-12-09] MEDS: buPROPion XL 150 MG TABCR PO SCH (09:26)
[2022-12-09] MEDS: ENOXAPARIN INJ 40 MG/0.4 ML SYR SQ SCH (09:26)
--- NOTE | 2022-12-09 11:51 | Discharge Summary ---
Date of Service December 09, 2022 Admission HPI Per Admitting Provider Mary Hubbard is a 62 yo F with a pmhx of HTN, depression/anxiety, and COPD who presents to the ER today for the second time over 24 hours due to ongoing dyspnea. She reports that she woke up this morning short of breath, is exacerbated by exertion but ultimately nothing else seems to make it worse and denies any alleviating factors. She notes associated chest tightness that remains in her chest, no radiation, and is not associated with nausea or diaphoresis. She does have c/o orthopnea and feels lightheaded/near syncopal with exertion. She endorses a h/o cardiac murmur and used to follow with cardiology (Dr. Marks) prior to being incarcerated. She notes that she has also been seen by Dr. Frank for a prior cardiac catheterization. She denies having a h/o heart failure, MA, or coronary artery disease/stenting. Her ER w/u today revealed a normal pulse ox and normal CXR. She was treated for a possible COPD exacerbation with Methylprednisolone and multiple Duonebs but despite that, continues to endorse breathlessness. Her labs are essentially unrevealing, her wbc count is minimally elevated at 11 with slight left shift, hs trop is normal at 11, EKG which is dated from yesterday and not repeated today demonstrated NSR with a left axis deviation and PVCs. Due to persistence of symptoms, she has been referred to hospitalists for admission. Admission Exam Per Admitting Provider GENERAL: 62 yo obese F. AAOx4. NAD. LUNGS: Nonlabored. Clear to auscultation bilaterally CARDIOVASCULAR: Regular rate and rhythm with 3/6 GEO. No JVD. ABDOMEN: Soft, non-tender and non-distended. BS normoactive x 4 quad. EXTREMITIES: No edema. Non-tender. Peripheral pulses +2/4. Principal Diagnosis untreated COPD Discharge Exam Constitutional: well appearing, no acute distress HEENT: normocephalic, no conjunctival injection CV: regular rhythm, no murmur, no LE edema Respiratory: Clear to auscultation bilaterally but mildly distant breath sounds throughout. No rhonchi, wheezes, or crackles. No increased work of breathing MSK: no gross deformities noted Skin: warm, dry, no rashes Neuro: alert, oriented, no FND noted Discharge Data Allergies Allergy/AdvReac Type Severity Reaction Status Date / Time adhesive tape Allergy Mild tears skin Verified 03/23/21 13:23 and blister ibuprofen Allergy Mild advised to Verified 03/23/21 13:23 avoid s/p gastric bypass ferric carboxymaltose Allergy Unknown Verified 03/23/21 13:23 [From Injectafer] Consultations 12/07/22 15:42 ED Decision to Admit Stat Hospital Course (1) Shortness of breath: Pt is a 62 yo female with PMH of COPD, depression, gastric bypass, GERD, ITP, non-ischemic cardiomyopathy, and aortic stenosis presenting to the hospital due to an increase in SOB. Shortness of breath - in the setting of uncontrolled COPD; pt states she does not use her inhalers at home - no oxygen requirement during this hospitalization - Resp biofire neg; COVID neg - d/c with inhaler regimen; advair 1 puff BID for maintenance, spiriva 2 puff daily for maintenance, albuterol 2 puffs q6hr PRN - also began prednisone 40 mg daily, d/c home with 3 more days plus small taper - refused pneumococcal vaccine during hospitalization Aortic stenosis - echo upon admission showed EF 50-55%, LVH, mild - unlikely to be cause of her symptoms; more likely attributed to lung pathology Non-ischemic cardiomyopathy - echo as above - multiple PVCs noted on tele in ER - did not discharge pt with metoprolol 25 mg as she had low HRs (50s, down to 30s) - recommend further discussion as outpatient Depression - unsure of pt's actual home regimen - will continue with bupropion 150 mg qAM upon discharge - recommend discussion as outpatient Hypertension - will continue lisinopril 10mg/HCTZ 12.5mg - recommend further discussion on follow up Pt provided with prescriptions for amitriptyline, ropinirole, lisinopril/HCTZ, bupropion, and inhalers as above. As pt states she does not have any medications at home, recommend a thorough review in her history and medications that she needs. FEN: heart healthy Code: DNI DVT ppx: lovenox Dispo: home (2) COPD (chronic obstructive pulmonary disease): (3) Non-ischemic cardiomyopathy: (4) Essential hypertension: (5) Aortic stenosis: Total Time Total Time Spent Total Time Spent (In Minutes): <30 Discharge Plan Discharge Items Patient Disposition: Home - Self-Care Reason For Visit: DYSPNEA Discharge Diagnosis: uncontrolled COPD Activity: Per Instructions section Non-emergency contact: Primary Care Provider Call non-emergency contact if: you have any medication questions and your symptoms worsen Follow-up/Referrals: Galina Simmons DO [Primary Care Provider] - 12/19/22 4:05 pm () Diet: Heart Healthy Addtl Attending Provider Instructions: You were admitted to the hospital for shortness of breath. You did not require any supplemental oxygen while hospitalized. An ultrasound of your heart (echocardiogram) was performed which showed that one of your heart valves isn't working properly. However, this dysfunctional heart valve is most likely not the cause of your symptoms. The most likely reason for you feeling short of breath is due to an exacerbation/uncontrolled COPD. To help this, you should take your new inhalers regularly. You should also follow up with your PCP to discuss your other medications and what you should and should not be taking concerning your other medical history. A few medications have been sent to your pharmacy to bridge the gap between hospitalization and your PCP appointment. A discharge summary will be sent to your primary care physician to ensure continuity of care. Please bring this discharge summary with you to your next office appointment so that your provider can review it at that time. Medications: Your medication list has been reviewed and reconciled upon discharge to ensure accuracy and continuity of care. An updated list of all your medications is included with your hospital discharge paperwork. Please review this list closely and make note of any changes to your medications. - Use your Advair Diskus (fluticasone/salmeterol) 1 puff twice per day each day. This is not to be used as needed. This medication is a mixture of a steroid and a long acting medicine to open up your airways. - You have also been sent a new inhaler called Spiriva. This is another long acting medication that will help open your airways. This should be taken 2 puffs each morning. - You will also have a "rescue" inhaler called albuterol. This is to be used only as needed if your breathing is not quite at baseline (ie; you are more short of breath than usual). This can be taken up to 4 times per day if needed. - You should also continue the oral steroids that you were started on in the hospital. You should take 4 tablets daily for three days starting tomorrow. You will then decrease to 3 tablets for two days, 2 tablets for two days, and 1 tablet for two days as written on your prescription bottle. Please ask your PCP if you have any questions. In summary, your inhaler regimen is as follows: Advair 1 puff twice per day Spiriva 2 puffs in the morning Albuterol 2 puffs as needed up to 4 times per day In terms of other medications, the following medications have been sent to the [facility] pharmacy on . Amitriptyline 50 mg each night Bupropion (wellbutrin) 150 mg each morning Ropinirole 0.25 mg each night Lisinopril/hydrochlorothiazide 10/12.5mg each morning Follow up appointments: - You have an appointment with your PCP, Dr. Simmons, on December 19 at 4:05. Please make sure to attend this appointment. - Keep all of your follow up appointments as already scheduled. If you cannot make an appointment, notify your provider. CONTACT YOUR PRIMARY CARE PROVIDER if you experience any of the following: - Difficulty following your treatment plan - Difficulty taking any of your medications CALL 911 OR GO TO THE EMERGENCY DEPARTMENT if you experience any of the following: - Sudden, severe abdominal pain or nausea/vomiting - Severe chest pain or chest pain that radiates to your jaw or arm - Sudden, severe shortness of breath or difficulty breathing Pending Studies at Discharge: No Stand-Alone Forms: [facility], Smoking Cessation Medications and DC Order Prescriptions: New amitriptyline 50 mg Tablet 50 mg PO HS Qty: 14 0RF ropinirole 0.25 mg Tablet 0.25 mg PO HS Qty: 30 0RF bupropion HCl 150 mg Tablet Extended Release 24 Hr 150 mg PO QAM Qty: 30 0RF Spiriva Respimat 2.5 mcg/actuation mist 2 inh inhalation DAILY 30 Days Qty: 4 2RF lisinopril-hydrochlorothiazide [Zestoretic] 10-12.5 mg Tablet 1 tab PO QAM Qty: 30 1RF prednisone 10 mg tablet 40 mg PO DAILY Qty: 24 0RF Rx Instructions: Take 4 tablets starting tomorrow 06/12. Continue this for two more days after the start. Then take 3 tablets daily for 2 days. Then take 2 tablets daily for 2 days. Then take 1 tablet daily for 2 days. Continued furosemide [Lasix] 20 mg tablet 20 mg PO DAILY PRN (Reason: Edema) Rx Instructions: per pt he takes everyday omeprazole 40 mg capsule,delayed release(DR/EC) 40 mg PO QAM fluticasone propion-salmeterol [Advair Diskus] 250-50 mcg/dose Blister With Device 1 inh INHALATION Q12H PRN (Reason: Shortness Of Breath Or Wheezing) 30 Days Qty: 1 2RF albuterol sulfate 90 mcg/actuation HFA aerosol inhaler 2 puff inhalation QID PRN (Reason: Shortness Of Breath) 30 Days Qty: 1 2RF Discontinued amitriptyline 50 mg tablet 50 mg PO HS bupropion HCl 150 mg tablet extended release 24 hr 150 mg PO QAM lorazepam 0.5 mg tablet 0.5 mg PO DAILY PRN (Reason: Anxiety) meloxicam [Mobic] 15 mg tablet 15 mg PO DAILY nitroglycerin 0.4 mg tablet, sublingual 0.4 mg sublingual Q5M PRN (Reason: Chest Pain) Rx Instructions: do not exceed 3 doses per episode promethazine 25 mg tablet 25 mg PO QID PRN (Reason: Nausea) Rx Instructions: 25 mg PO; pramipexole 0.5 mg tablet 0.5 mg PO HS citalopram 20 mg tablet 20 mg PO QAM ropinirole 0.25 mg tablet 0.25 mg PO BID Rx Instructions: Unsure if its twice daily, she thinks only once a day lisinopril 5 mg tablet 5 mg PO .ON HOLD metoprolol succinate 25 mg tablet extended release 24 hr 25 mg PO HS pregabalin [Lyrica] 100 mg capsule 100 mg PO TID PRN (Reason: Pain) Combivent Respimat 20-100 mcg/actuation Mist 1 puff INHALATION Q6H PRN (Reason: Shortness Of Breath Or Wheezing) potassium chloride 10 mEq capsule, extended release 10 meq PO BID Rx Instructions: per pt she used to take 2 capsules twice a day tramadol 50 mg tablet 100 mg PO Q4H PRN (Reason: Pain) prednisone 50 mg tablet 0 mg PO DAILY Rx Instructions: pt unsure if she still takes this. cyanocobalamin (vitamin B-12) 1,000 mcg/mL Solution 0 mcg subcut USEASDIRECTD Rx Instructions: Per pt she was supposed to have b12 injections every 3 months Discharge Orders: Discharge Order (Routine); Ordered 12/09/22 Ordered By: Salina Leroy/Other Patient Handouts: Stroke and Heart Disease, Shortness of Breath Coping, Eating Heart-Healthy Foods Admission Data Admit Date/Time: 12/07/22 15:50 Attending Provider: Jassi Mcdonald Admit Provider: Osvaldo Walker Primary Care Provider: Galina Simmons Other Providers: Osvaldo Walker Other Interventions: Discharge Summary Assessment (RN) Last Done: 12/09/22 13:27 Supervising Physician Co-Signing Physician Notes I personally examined the patient and verified all gonzalez points of history and exam, discussed case, and agree with decision making with Dr Presley feels up to going home vitals noted nad heent nc at mmm breathing unlabored no accessory muscle use good effort. Skin shows no rashes no pallor or icterus. HILL - probably undertreated COPD - doubt cardiac since valve disease is mild and she shows no pulmonary edema. discussed triple therapy again. since recent smoke exposure (Zooplus) gave trial of steroids given that she is feeling more short of breath than normaland this seems to have helpedshort taper. valvular disease/LVH outpt f/u diarrhea - missing antidepressants for a few days vs overflow - but no worrisome findings and abdomen benign - follow up as outpatient Safe/stable for home Unless they have been done and I do not see record of them, would benefit from PFTs in the near future to quantify her presumed COPD Resident Activity Tracking Resident Involvement: Resident Care Provided Care Provided: Adult Hospital Medicine
--- NOTE | 2022-12-09 17:49 | Billing Data ---
Date of Service December 09, 2022 Coding Level of Care Code 86061 IN/OBS DISCH 30 MIN/LESS
== END 2022-12-09 13:15 | disposition home or self-care (01) ==
LOC: ED 09:02 → 2W 09:02 → SUATTDRO 15:50 → 2W 18:05